=== PATIENT | female | born 1990 | race Caucasian/White ===

== ENCOUNTER 2020-09-26 09:12 | Outpatient (REF) | payer OTHER, SELFPAY ==
[2020-09-26 11:57] LABS: HCG Quantitative 37756 mIU/mL
== END 2020-09-26 09:13 | disposition home or self-care (01) ==
LOC: HO.LAB 09:12
PROVIDERS: PCP Internal Medicine; Visit Provider Advanced Practice Midwife
DX: Z32.01 Encounter for pregnancy test, result positive (principal); Z3A.00 Weeks of gestation of pregnancy not specified; Z87.891 Personal history of nicotine dependence
CPT/HCPCS: 36415; 81025; 84702; 99212

== ENCOUNTER 2020-09-29 11:46 | Outpatient (REF) | payer OTHER, SELFPAY ==
[2020-09-29 14:41] LABS: HCG Quantitative 45970 mIU/mL
== END 2020-09-29 11:47 | disposition home or self-care (01) ==
LOC: HO.LAB 11:46
PROVIDERS: PCP Internal Medicine; Visit Provider Advanced Practice Midwife
DX: O26.851 Spotting complicating pregnancy, first trimester (principal)
CPT/HCPCS: 36415; 84702

== ENCOUNTER 2020-09-30 09:22 | Outpatient (REF) | payer OTHER, SELFPAY ==
--- NOTE | ~2020-09-30 | US_ITS ---
EXAMINATION: OBSTETRICAL ULTRASOUND, FIRST TRIMESTER HISTORY: 30-year-old with unknown LMP NT screening COMPARISON: None TECHNIQUE: Real time transabdominal imaging with color and M-mode Doppler. FINDINGS: A single, live IUP CRL of 54.7 mm c/w 12.1wks is noted. Heart Rate: 167 beats per minute. Normal yolk sac seen. NT was 1.2.mm. NB Present The embryo appears sonographically wnl for this GA. Both maternal ovaries are seen and appear normal. GESTATIONAL AGE: 1. Established GA: N/A wks 2. GA from [facility]: 12.1 wks ESTIMATED DATE OF DELIVERY: 1. Established LIZA: N/A 2. LIZA from [facility]: 04/13/2021 US/US OB 1T nuc measure IMPRESSION: 1. A single live IUP 2. CRL is consistent with 12.1 weeks giving her an LIZA of 04/23/2021 3. NT 1.2 mm MFM Consultation: I reviewed the ultrasound findings along with significance of NT measurement. The NT of less than 3mm is generally reassuring. However, the sensitivity for T21 detection is only 60%. I reviewed the availability of serum aneuploidy screening which includes cell-free DNA and placental protein based tests. I discussed the sensitivity, false-positive rate, and other limitations associated with each test. I also reviewed the availability of invasive diagnostic tests that are associated small but definite risk of miscarriage. We also reviewed the differences between screening tests and diagnostic tests. After our discussion, she opted for the First trimester screening that is based on cell-free DNA or non-invasive testing (NIPT). The result will be faxed to your office in approximately 7 days. A follow up at 18 weeks for survey has been scheduled. Thank you very much for this referral. Total time 20 minutes. The time spent was devoted to counseling the patient about the disease and diagnosis, coordinating care including reviewing her records, pertinent lab data and studies, as well as discussing diagnostic evaluation and workup, plan therapeutic interventions and future disposition of care. This includes any additional research needed to obtain further information in formulating the plan of care of this patient. This note was generated with a voice recognition program. Please excuse any errors which may have been overlooked during my review of this note. Sometimes these errors may affect the content or meaning of a given sentence.
== END 2020-09-30 09:23 | disposition home or self-care (01) ==
LOC: HO.US 09:22
PROVIDERS: Visit Provider Advanced Practice Midwife
DX: O26.851 Spotting complicating pregnancy, first trimester (principal); Z3A.12 12 weeks gestation of pregnancy
CPT/HCPCS: 76813

== ENCOUNTER → 2020-10-18 14:14 | Outpatient (BNVA) | payer OTHER, SELFPAY | PROVIDERS: PCP Internal Medicine; Visit Provider Advanced Practice Midwife | DX: Z13.89 Encounter for screening for other disorder (principal) | CPT/HCPCS: 99212 ==

== ENCOUNTER 2020-10-26 09:02 | Outpatient (REF) | payer OTHER, SELFPAY ==
[2020-10-26 14:01] LABS: CT PCR NOT DETECTED (Not Detect.); NG PCR NOT DETECTED (Not Detect.)
[2020-10-27 09:06] LABS: BV Int Neg Control Negative (Negative); BV Int Pos Control Positive (Positive)
[2020-10-29 03:21] LABS: HPV mRNA E6/E7 rflx Not Detected (Not Detected)
== END 2020-10-26 09:03 | disposition home or self-care (01) ==
LOC: HO.LAB 09:02
PROVIDERS: PCP Internal Medicine; Visit Provider Advanced Practice Midwife
DX: O98.512 Other viral diseases complicating pregnancy, second trimester (principal); B00.9 Herpesviral infection, unspecified; Z87.891 Personal history of nicotine dependence; Z20.2 Contact with and (suspected) exposure to infections with a predominantly sexual mode of transmission; Z12.4 Encounter for screening for malignant neoplasm of cervix
CPT/HCPCS: 36415; 81003; 87480; 87491; 87510; 87591; 87624; 87660; 88142; 99212

== ENCOUNTER 2020-11-11 10:49 | Outpatient (REF) | payer OTHER, SELFPAY ==
--- NOTE | ~2020-11-11 | US_ITS ---
EXAMINATION: US OBSTETRICAL CLINICAL INFORMATION: 30-year-old at the 18.1 weeks of gestation Suspected anomaly COMPARISON: 09/30/2020 TECHNIQUE: Real-time transabdominal ultrasound was performed using C1-5 megahertz transducer. FINDINGS: A single, active, fetus is seen in breech presentation. The placenta is posterior without previa, and the amniotic fluid volume is wnl. MEASUREMENTS: 1. Biparietal Diameter: 8.4 cm; 17.6 wks 2. Occipital Frontal Diameter: 5.3 cm 3. Head Circumference: 14.9 cm; 18.1 wks 4. Abdominal Circumference: 12.1 cm; 17.6 wks 5. Femur Length: 2.5 cm; 17.5 wks 6. Humerus Length: 2.4 cm; 17.4 wks 7. Tibia Length: 2.2 cm; 17.6 wks 8. Ulna Length: 2.3 cm; 18.2 wks 9. Lateral ventricle: 0.7 cm 10. Cerebellum: 1.84 cm; 19 point wks 11. Cisterna Magna: 0.34 cm 12. Nuchal Fold: 2.6 mm 13. Heart Rate: 158 beats per minute Rt ovary: normal Lt ovary: normal Cervical length 3.9 cm on T/A. GESTATIONAL AGE: 1. Established GA: 18.1 wks 2. GA from [facility]: 18.0 wks ESTIMATED DATE OF DELIVERY: 1. Established LIZA: 04/13/2021 2. LIZA from [facility]: 04/14/2021 ANATOMY: The views of the four-chamber view of the heart, ventricular septum, 3 vessel trachea view were suboptimal due to position. There is an echogenic intracardiac focus. The visualized anatomy includes but not limited to: 1. Cranium: Normal 2. Intracranial anatomy: cavum septum pellucidi, lateral ventricles, choroid plexus, cerebellum, posterior fossa, third and fourth ventricles. 3. face: orbits, lip/palate, profile, nasal bone 4. Heart: Echogenic intracardiac focus. Limited view of the four-chamber, ventricular septum. Following anatomy were within normal limits: foramen ovale, pulmonary vein, left and right outflow tracts, three-vessel view, 3 vessel trachea view, aortic and ductal arches, situs.. 5. Diaphragm: Normal 6. Abdominal wall: Normal 7. Cord Insertion: Normal 8. Spine: Cervical, thoracic, lumbar, sacral. 9. Stomach: Normal size and shape 10. Right Kidney: Normal 11. Left Kidney: Normal 12. 3 vessel cord: Normal 13. Upper extremity: Open hands, fifth digit. 14. Lower extremity: Tibia, fibula, bilateral feet. 15. Bladder: Normal 16. Genitalia: Male, patient aware US/US OB /maternal detail IMPRESSION: 1. Single, living, intrauterine with appropriate biometry. 2. Echogenic intracardiac focus in the left ventricle. cardiac anatomy was suboptimal secondary to position. No abnormalities were seen in visualized anatomy. 3. Normal amniotic fluid volume DISCUSSION: I reviewed there are weak association with Down syndrome and echogenic intracardiac focus. The likelihood ratio is 2. She had the low risk N IPT. In the setting of low risk N IPT, EIF is considered to be a normal variant.. Aside from its association with Down syndrome, the clinical significance of EIF is unclear. We discussed the limitations of ultrasound in diagnosing aneuploidy and other congenital abnormalities. I reviewed the differences between screening test and diagnostic test. Amniocentesis was discussed and declined. I informed her that she should the follow-up in approximately 2 weeks to complete the evaluation of the cardiac anatomy. She was informed that the baseline incidence of congenital abnormalities is approximately 3-5%. Not all these conditions are diagnosable in utero. RECOMMENDATIONS: 1. Follow-up in 2 weeks (scheduled). Thank you for allowing me to participate in her care. Total time 30 minutes. The time spent was devoted to counseling the patient about the disease and diagnosis, coordinating care including reviewing her records, pertinent lab data and studies, as well as discussing diagnostic evaluation and workup, plan therapeutic interventions and future disposition of care. This includes any additional research needed to obtain further information in formulating the plan of care of this patient. This note was generated with a voice recognition program. Please excuse any errors which may have been overlooked during my review of this note. Sometimes these errors may affect the content or meaning of a given sentence.
== END 2020-11-11 10:50 | disposition home or self-care (01) ==
LOC: HO.US 10:49
PROVIDERS: Visit Provider Advanced Practice Midwife
DX: Z36.3 Encounter for antenatal screening for malformations (principal); Z3A.18 18 weeks gestation of pregnancy
CPT/HCPCS: 76811

== ENCOUNTER 2020-11-21 12:04 | Outpatient (REF) | payer OTHER, SELFPAY ==
[2020-11-21 13:06] LABS: MANUAL DIFF FLAG NO
[2020-11-21 13:07] LABS: Basophils Percent Auto 0.2 % (0-2); Eosinophils Absolute Auto 0.2 X10*3/uL (0.0-0.4); Eosinophils Percent Auto 2.1 % (0-4); Hematocrit 36.7 % (37-47); Hemoglobin 12.3 g/dl (12.0-16.0); Imm Gran Abs Auto 0.07 X10*3/uL (0.00-0.03); Imm Gran Pct Auto 0.8 % (0.0-0.4); Lymphocytes Absolute Auto 1.5 X10*3/uL (1.2-4.9); Lymphocytes Percent Auto 16.5 % (20-40); Mean Corpuscular HGB Conc 33.5 g/dl (31.0-35.0); Mean Corpuscular Hemoglobin 30.2 pg (27.0-33.0); Mean Corpuscular Volume 90.2 fL (80-98); Mean Platelet Volume 10.4 fL (9.4-12.3); Monocytes Absolute Auto 0.6 X10*3/uL (0.1-1.2); Monocytes Percent Auto 6.1 % (2-11); Neutrophils Absolute Auto 6.9 X10*3/uL (2.0-8.3); Neutrophils Percent Auto 74.3 % (45-73); Platelet Count 250 X10*3/uL (160-400); Red Blood Count 4.07 X10*6/uL (4.20-5.50); Red Cell Distribution Width 12.6 % (11.0-16.0); White Blood Count 9.3 X10*3/uL (4.8-10.8)
[2020-11-21 13:26] LABS: Amphetamine Screen Urine Not Detected (Not Detect); Barbiturates, Urine Not Detected (Not Detect); Benzodiazepines Screen Urine Not Detected (Not Detect); Cannabinoid Screen Urine POSITIVE (Not Detect); Cocaine Screen Urine Not Detected (Not Detect); Opiate Screen Urine Not Detected (Not Detect); Phencyclidine Screen Urine Not Detected (Not Detect)
[2020-11-21 13:46] LABS: Syphilis Screen Nonreactive (Nonreactive)
[2020-11-22 04:29] LABS: HIV AB/AG Nonreactive (Nonreactive); HIV Num 1 0.07 S/CO (0.00-0.99); ~Hepatitis C Antibody Nonreactive (Nonreactive)
[2020-11-22 04:40] LABS: HBsAGNum1 0.22 S/CO (0.00-0.99); Hepatitis B Surface Antigen Negative (Negative)
== END 2020-11-21 12:05 | disposition home or self-care (01) ==
LOC: HO.LAB 12:04
PROVIDERS: PCP Internal Medicine; Visit Provider Advanced Practice Midwife
DX: Z34.90 Encounter for supervision of normal pregnancy, unspecified, unspecified trimester (principal)
CPT/HCPCS: 80307; 85025; 86762; 86780; 86787; 86803; 86850; 86886; 86900; 86901; 87086; 87340; 87389

== ENCOUNTER → 2020-11-23 10:38 | Outpatient (BNVA) | payer OTHER, SELFPAY | PROVIDERS: Visit Provider Advanced Practice Midwife | DX: Z34.82 Encounter for supervision of other normal pregnancy, second trimester (principal); Z3A.19 19 weeks gestation of pregnancy | CPT/HCPCS: 81003; 99212 ==

== ENCOUNTER 2020-11-25 10:32 | Outpatient (REF) | payer OTHER, SELFPAY ==
--- NOTE | ~2020-11-25 | US_ITS ---
EXAMINATION: OBSTETRICAL ULTRASOUND, Follow up HISTORY: 30-year-old at the [place] she 0.1 weeks of gestation Incomplete survey COMPARISON: 11/11/2020 TECHNIQUE: Real time transabdominal imaging with color and M-mode Doppler. PRESENTATION: Vertex PLACENTA LOCATION: Anterior without previa AMNIOTIC FLUID: Normal MEASUREMENTS: 1. Biparietal Diameter: 4.7 cm; 20.2 wks 2. Head Circumference: 17.6 cm; 20.1 wks 3. Abdominal Circumference: 14.4 cm; 19.6 wks 4. Femur Length: 3.0 cm; 19.1 wks 5. Heart Rate: 146 beats per minute WEIGHT: Estimated weight is 290 grams (0 lbs 11 oz) -- 60 %. Normal views of lateral cerebral ventricle, profile, nose/lips, 4ch view, LVOT, RVOT, gender. GESTATIONAL AGE: 1. Established GA: 20.1 wks 2. GA from [facility]: 19.6 wks ESTIMATED DATE OF DELIVERY: 1. Established LIZA: 04/13/2021 2. LIZA from [facility]: 04/15/2021 US/US OB follow up IMPRESSION: 1. A single fetus with appropriate interval growth. 2. Previously limited views of the anatomy were seen as listed above. No abnormalities were noted in visualized anatomy. 3. Persistent EIF. She was counseled regarding the clinical significance of this finding in her last visit. I reviewed the limitations of ultrasound in diagnosing aneuploidy and other congenital abnormalities. Amniocentesis was again reviewed and she declined. She was informed that the baseline instance of congenital abnormalities and defects in the general population is approximately 3-5%. Not all these conditions are diagnosable in utero. RECOMMENDATIONS: 1. f/u PRN Thank you very much for this referral. Total time 20 minutes. The time spent was devoted to counseling the patient about the disease and diagnosis, coordinating care including reviewing her records, pertinent lab data and studies, as well as discussing diagnostic evaluation and workup, plan therapeutic interventions and future disposition of care. This includes any additional research needed to obtain further information in formulating the plan of care of this patient. This note was generated with a voice recognition program. Please excuse any errors which may have been overlooked during my review of this note. Sometimes these errors may affect the content or meaning of a given sentence.
== END 2020-11-25 10:33 | disposition home or self-care (01) ==
LOC: HO.US 10:32
PROVIDERS: PCP Internal Medicine; Visit Provider Advanced Practice Midwife
DX: Z36.3 Encounter for antenatal screening for malformations (principal)
CPT/HCPCS: 76816

== ENCOUNTER → 2020-12-21 10:33 | Outpatient (BNVA) | payer OTHER, SELFPAY | PROVIDERS: Visit Provider Advanced Practice Midwife | DX: Z34.92 Encounter for supervision of normal pregnancy, unspecified, second trimester (principal); Z3A.23 23 weeks gestation of pregnancy | CPT/HCPCS: 81003; 99212 ==

== ENCOUNTER → 2021-01-18 11:15 | Outpatient (BNVA) | payer OTHER, SELFPAY | PROVIDERS: Visit Provider Obstetrics & Gynecology | DX: O34.219 Maternal care for unspecified type scar from previous cesarean delivery (principal); Z3A.27 27 weeks gestation of pregnancy | CPT/HCPCS: 81003; 99212 ==

== ENCOUNTER 2021-01-30 09:30 | Outpatient (REF) | payer OTHER, SELFPAY ==
--- NOTE | 2021-01-30 16:19 | MHC.AU.AHA ---
Adult Audiological Evaluation Date of Visit: 01/30/21 Reason for Appointment: Audiological re-evaluation to monitor the status of Ms. Hernandez's hearing loss. She has a long-standing history of bilateral, sensorineural hearing loss and hearing aid use. She notes that she feels the hearing in her right ear is getting worse. She denies any significant changes to her medical history since her last visit. [place] [facility] [place] Mild sloping to moderately-severe sensorineural hearing loss and rising to normal hearing bilaterally. Ear History: Family History of Hearing Loss?: Yes: Daughter has bilateral SNHL Medical History: Medical History: Unremarkable Medical History Hearing Instrument History- Right Ear: Framing Machine Tender: [employer]pe Model: AiotraeGreenIQ M50-13T Serial Number: [id number] Battery Size: 13 Repair Warranty: 06/30/2022 Loss and Damage Warranty: 06/30/2022 Dispensed By: [facility] Date of Fittin04/20/2019 Hearing Instrument History- Left Ear: Framing Machine Tender: Phonak Model: Aiotraeo M50-13T Serial Number: [id number] Battery Size: 13 Warranty: 06/30/2022 Loss and Damage Warranty: 06/30/2022 Dispensed By: [facility] Date of Fittin04/20/2019 Otoscopy: Right Ear: Unremarkable Left Ear: Unremarkable Tympanometry: Tympanometry performed due to: To assess integrity of the middle ear system Right Ear: Normal Middle Ear System (Type A) Left Ear: Normal Middle Ear System (Type A) Hearing Evaluation: Transducer(s) Used: Insert Earphones, Bone Conduction Method: Conventional Audiometry Stimuli Used: Pure Tones Right Ear: Description of Hearing: Mild sensorineural hearing loss (SNHL) at 250-500 Hz, sloping to a moderate SNHL at 750 Hz, a moderately severe SNHL from 7055-4287 Hz, and rising to a moderate SNHL at 4000 Hz, and normal hearing from 6129-6111 Hz. Left Ear: Description of Hearing: Mild sensorineural hearing loss (SNHL) at 250-750 Hz, sloping to a moderately severe SNHL from 8734-3144 Hz, and rising to a moderate SNHL at 3000 Hz, a mild SNHL at 4000 Hz, and normal hearing from 9121-6057 Hz. Speech Recognition Threshold (SRT): Method Used: Monitored Live Voice Stimuli Used: Spondee Words Right Ear: 35 dBHL Left Ear: 25 dBHL Word Discrimination: Method: Recorded Lists Word Lists Used: NU-6 Right Ear: 92% at 75 dBHL Left Ear: 88% at 75 dBHL Comparison: Compared to the most recent evaluation: Hearing is stable. Recommendations: Audiological re-evaluation in one year. Hearing aid maintenance performed today. Hearing aid(s) reprogrammed with updated test results. Recommend consistent daily use of hearing aids. Diagnosis: Primary Diagnosis: H90.3 Bilateral Sensorineural Hearing Loss Services Performed: Comprehensive Audiological Evaluation (CPT 34371) Tympanometry (CPT 46268) Signature: Provider: Rao Pickard, CCC-A
== END 2021-01-30 09:31 | disposition home or self-care (01) ==
LOC: HO.SH 09:30
PROVIDERS: Visit Provider Internal Medicine
DX: Z46.1 Encounter for fitting and adjustment of hearing aid (principal); H90.3 Sensorineural hearing loss, bilateral
CPT/HCPCS: 92557; 92567; 92593; V5266

== ENCOUNTER → 2021-02-01 11:21 | Outpatient (BNVA) | payer OTHER, SELFPAY | PROVIDERS: Visit Provider Advanced Practice Midwife | DX: O34.219 Maternal care for unspecified type scar from previous cesarean delivery (principal); Z3A.39 39 weeks gestation of pregnancy | CPT/HCPCS: 81003; 99212 ==

== ENCOUNTER 2021-02-09 14:11 | Outpatient (REF) | payer OTHER, SELFPAY ==
[2021-02-09 16:10] LABS: Hematocrit 39.3 % (37-47); Hemoglobin 13.1 g/dl (12.0-16.0); Mean Corpuscular HGB Conc 33.3 g/dl (31.0-35.0); Mean Corpuscular Hemoglobin 29.3 pg (27.0-33.0); Mean Corpuscular Volume 87.9 fL (80-98); Mean Platelet Volume 10.4 fL (9.4-12.3); Platelet Count 263 X10*3/uL (160-400); Red Blood Count 4.47 X10*6/uL (4.20-5.50); Red Cell Distribution Width 12.8 % (11.0-16.0); White Blood Count 9.9 X10*3/uL (4.8-10.8)
[2021-02-09 16:18] LABS: Glucose 1 Hour PP 50gm Dose 156 mg/dL (60-140)
[2021-02-10 07:48] LABS: Syphilis Screen Nonreactive (Nonreactive)
== END 2021-02-09 14:12 | disposition home or self-care (01) ==
LOC: HO.LAB 14:11
PROVIDERS: PCP Internal Medicine; Visit Provider Advanced Practice Midwife
DX: Z34.92 Encounter for supervision of normal pregnancy, unspecified, second trimester (principal); Z20.2 Contact with and (suspected) exposure to infections with a predominantly sexual mode of transmission
CPT/HCPCS: 36415; 85027; 86780

== ENCOUNTER 2021-02-15 08:46 | Outpatient (REF) | payer OTHER, SELFPAY ==
[2021-02-15 09:40] LABS: Glucose Fasting 97 mg/dL (60-99)
[2021-02-15 11:15] LABS: Glucose 1 Hour 171 mg/dL
[2021-02-15 13:38] LABS: Glucose 3 Hour 111 mg/dL
[2021-02-15 13:38] LABS: Glucose 2 Hour 89 mg/dL
== END 2021-02-15 08:47 | disposition home or self-care (01) ==
LOC: HO.LAB 08:46
PROVIDERS: PCP Internal Medicine; Visit Provider Advanced Practice Midwife
DX: O99.810 Abnormal glucose complicating pregnancy (principal)
CPT/HCPCS: 36415; 82951

== ENCOUNTER → 2021-02-16 10:13 | Outpatient (BNVA) | payer OTHER, SELFPAY | PROVIDERS: Visit Provider Advanced Practice Midwife | DX: O99.810 Abnormal glucose complicating pregnancy (principal); Z3A.32 32 weeks gestation of pregnancy | CPT/HCPCS: 81003; 99212 ==

== ENCOUNTER → 2021-03-02 11:10 | Outpatient (BNVA) | payer OTHER, SELFPAY | PROVIDERS: Visit Provider Advanced Practice Midwife | DX: O36.8130 Decreased fetal movements, third trimester, not applicable or unspecified (principal); O99.810 Abnormal glucose complicating pregnancy; O34.219 Maternal care for unspecified type scar from previous cesarean delivery; Z3A.34 34 weeks gestation of pregnancy | CPT/HCPCS: 59025; 90471; 90715; 99212 ==

== ENCOUNTER 2021-03-17 10:41 | Outpatient (REF) | payer OTHER, SELFPAY ==
[2021-03-18 13:10] LABS: CT PCR NOT DETECTED (Not Detect.); NG PCR NOT DETECTED (Not Detect.)
== END 2021-03-17 10:42 | disposition home or self-care (01) ==
LOC: HO.LAB 10:41
PROVIDERS: Visit Provider Advanced Practice Midwife
DX: O99.810 Abnormal glucose complicating pregnancy (principal); O26.843 Uterine size-date discrepancy, third trimester; O36.8130 Decreased fetal movements, third trimester, not applicable or unspecified; O34.219 Maternal care for unspecified type scar from previous cesarean delivery; Z3A.36 36 weeks gestation of pregnancy
CPT/HCPCS: 87081; 87491; 87591; 99212

== ENCOUNTER 2021-03-24 08:37 | Outpatient (REF) | payer OTHER, SELFPAY ==
--- NOTE | ~2021-03-24 | US_ITS ---
EXAMINATION: OBSTETRICAL ULTRASOUND, Follow up HISTORY: 31-year-old woman at the 1137.1 weeks of gestation Size date discrepancy COMPARISON: 11/25/2020 TECHNIQUE: Real time transabdominal imaging with color and M-mode Doppler. PRESENTATION: Vertex PLACENTA LOCATION: Posterior without previa AMNIOTIC FLUID: AN 9.4 cm MEASUREMENTS: 1. Biparietal Diameter: 9.0 cm; 36.3 wks 2. Head Circumference: 32.6 cm; 37.0 wks 3. Abdominal Circumference: 31.1 cm; 35.1 wks 4. Femur Length: 6.4 cm; 33.0 wks 5. Heart Rate: 146 beats per minute WEIGHT: EFW: 2514 grams (5 lbs 9 oz) -- 8 %. BIOPHYSICAL PROFILE: Motion: 2 Tone: 2 Breathin Amniotic Fluid: 2 Total score: 8/8 UA Doppler showed SD ratio of 2.7. GESTATIONAL AGE: 1. Established GA: 37.1 wks 2. GA from [facility]: 35.3 wks ESTIMATED DATE OF DELIVERY: 1. Established LIZA: 04/13/2021 2. LIZA from [facility]: 04/25/2021 US/US OB velocimetry umbilical ar IMPRESSION: 1. A single active fetus is seen in the vertex presentation 2. Size less than dates, EFW corresponds to 8th percentile 3. Reassuring biophysical profile 4. Normal SD ratio I informed the patient that the interval growth has been less than expected . We discussed the limitations of ultrasound and estimating weights. Majority of the fetuses whose EFW fall below 10th percentile are constitutionally small fetuses who are growing to their full genetic potential. Approximately 20-30% of these fetuses may be experiencing intrauterine growth restriction. Often it is difficult to distinguish the two in utero. I reassured her that the testing is within normal limits including the umbilical artery Doppler. I recommended that weekly BPP and UA Doppler along with the NST 2 times per week. The delivery should be at approximately 39 weeks. Thank you very much for this referral. Total time 30 minutes. The time spent was devoted to counseling the patient about the disease and diagnosis, coordinating care including reviewing her records, pertinent lab data and studies, as well as discussing diagnostic evaluation and workup, plan therapeutic interventions and future disposition of care. This includes any additional research needed to obtain further information in formulating the plan of care of this patient. This note was generated with a voice recognition program. Please excuse any errors which may have been overlooked during my review of this note. Sometimes these errors may affect the content or meaning of a given sentence.
== END 2021-03-24 08:38 | disposition home or self-care (01) ==
LOC: HO.US 08:37
PROVIDERS: PCP Internal Medicine; Visit Provider Advanced Practice Midwife
DX: O26.843 Uterine size-date discrepancy, third trimester (principal); Z3A.37 37 weeks gestation of pregnancy
CPT/HCPCS: 76816; 76820; 99212

== ENCOUNTER → 2021-03-28 09:04 | Outpatient (BNVA) | payer OTHER, SELFPAY | PROVIDERS: Visit Provider Advanced Practice Midwife | DX: O36.5930 Maternal care for other known or suspected poor fetal growth, third trimester, not applicable or unspecified (principal); Z3A.37 37 weeks gestation of pregnancy | CPT/HCPCS: 59025; 81003; 99212 ==

== ENCOUNTER 2021-03-31 08:54 | Outpatient (REF) | payer OTHER, SELFPAY ==
--- NOTE | ~2021-03-31 | US_ITS ---
EXAMINATION: US OBSTETRICAL (BIOPHYSICAL PROFILE) CLINICAL INFORMATION: 31-year-old at 38.1 weeks of gestation growth restriction COMPARISON: 03/24/2021 TECHNIQUE: Biophysical profile is performed over 30 minutes with assessment of breathing, gross body movement, tone, and qualitative amniotic fluid volume. Power and color Doppler evaluation of the umbilical cord was performed. FINDINGS: POSITION: Cephalic PLACENTA: Posterior without previa AMNIOTIC FLUID INDEX: 11.9 cm CARDIAC ACTIVITY: 149 beats per minute BIOPHYSICAL PROFILE: Motion: 2 Tone: 2 Breathin Amniotic Fluid: 2 The total biophysical score is 8/8 UA Doppler showed SD ratio of 1.6 which is within normal limits. US/US OB velocimetry umbilical ar IMPRESSION: 1. Single intrauterine gestation in vertex position. 2. Reassuring BPP and AN. 3. Normal SD ratio in the umbilical artery. Last week's biometry was not repeated today. I reviewed today's findings and gave her reassurance. The testing was within normal limits. Despite last week's biometry showing an EFW in the 8th percentile, there is little evidence suggesting placental insufficiency. I reviewed the limitations of ultrasound and estimating weights. She is aware that the majority of the fetuses whose EFW fall below 10th percentile are constitutionally small but healthy fetuses growing to their full genetic potential. Approximately 20-30% of these fetuses may be experiencing placental insufficiency. Often it can be difficult to distinguish the two in utero. Recommend continuing weekly BPP and UA Doppler. NST 2 times per week. We will repeat the biometry next week. Suggest planning for delivery between 39 and 40 weeks if the testing continues to be reassuring. Thank you for allowing me to participate in her care. Total time 30 minutes. The time spent was devoted to counseling the patient about the disease and diagnosis, coordinating care including reviewing her records, pertinent lab data and studies, as well as discussing diagnostic evaluation and workup, plan therapeutic interventions and future disposition of care. This includes any additional research needed to obtain further information in formulating the plan of care of this patient. This note was generated with a voice recognition program. Please excuse any errors which may have been overlooked during my review of this note. Sometimes these errors may affect the content or meaning of a given sentence.
== END 2021-03-31 08:55 | disposition home or self-care (01) ==
LOC: HO.US 08:54
PROVIDERS: PCP Internal Medicine; Visit Provider Advanced Practice Midwife
DX: O26.843 Uterine size-date discrepancy, third trimester (principal); Z3A.38 38 weeks gestation of pregnancy
CPT/HCPCS: 59025; 76819; 76820; 99212

== ENCOUNTER → 2021-04-04 13:10 | Outpatient (BNVA) | payer OTHER, SELFPAY | PROVIDERS: Visit Provider Advanced Practice Midwife | DX: Z34.83 Encounter for supervision of other normal pregnancy, third trimester (principal); Z3A.38 38 weeks gestation of pregnancy | CPT/HCPCS: 59025; 81003; 99212 ==

== ENCOUNTER → 2021-04-17 09:00 | Outpatient (BNVA) | payer OTHER, SELFPAY | PROVIDERS: Visit Provider Advanced Practice Midwife | DX: Z39.2 Encounter for routine postpartum follow-up (principal) | CPT/HCPCS: 99212 ==

== ENCOUNTER 2021-05-05 09:52 | Outpatient (REF) | payer OTHER, SELFPAY ==
--- NOTE | ~2021-05-05 | XR_ITS ---
EXAMINATION: XR ABDOMEN KUB CLINICAL INDICATION: Calculus of kidney. COMPARISON: Renal ultrasound of 01/18/20. CT scan of 08/13/19. TECHNIQUE: AP view of the abdomen. FINDINGS: Visualization of the kidneys is obscured by overlying bowel gas and stool particularly on the left. No renal calculi are identified. There is a questionable small calcification overlying the lower pole of the right kidney. The bowel gas pattern is normal. Calcified phleboliths are seen in the left hemipelvis. There is a benign bone island in the right ischium. XR/XR KUB IMPRESSION: Limited evaluation. No definite renal calculi demonstrated.
== END 2021-05-05 09:53 | disposition home or self-care (01) ==
LOC: HO.XRAY 09:52
PROVIDERS: PCP Internal Medicine
DX: N20.0 Calculus of kidney (principal)
CPT/HCPCS: 74018

== ENCOUNTER → 2021-05-29 09:02 | Outpatient (BNVA) | payer OTHER, SELFPAY | PROVIDERS: Visit Provider Advanced Practice Midwife | DX: Z39.2 Encounter for routine postpartum follow-up (principal) | CPT/HCPCS: 99212 ==

== ENCOUNTER → 2021-06-06 09:08 | Outpatient (BNVA) | payer OTHER, SELFPAY | PROVIDERS: PCP Internal Medicine | DX: N20.0 Calculus of kidney (principal) | CPT/HCPCS: 99212 ==

== ENCOUNTER → 2021-06-16 09:26 | Outpatient (BNVA) | payer OTHER, SELFPAY | PROVIDERS: Visit Provider Advanced Practice Midwife | DX: Z39.2 Encounter for routine postpartum follow-up (principal) | CPT/HCPCS: 58300; 81025; 99212; J7298 ==

== ENCOUNTER → 2021-08-02 09:33 | Outpatient (BNVA) | payer OTHER, SELFPAY | PROVIDERS: Visit Provider Advanced Practice Midwife | DX: Z30.431 Encounter for routine checking of intrauterine contraceptive device (principal) | CPT/HCPCS: 99212 ==

== ENCOUNTER 2021-11-27 09:52 | Outpatient (REF) | payer OTHER, SELFPAY ==
--- NOTE | ~2021-11-27 | US_ITS ---
EXAMINATION: US RETROPERITONEAL LIMITED (RENAL ONLY) CLINICAL INFORMATION: Calculus of kidney. COMPARISON: XR abdomen KUB 05/05/2021. US retroperitoneal limited (renal only) 01/18/2020. CT abdomen and pelvis 08/13/2019. TECHNIQUE: Real-time imaging of the kidneys. FINDINGS: RIGHT KIDNEY: 11.6 x 4.3 x 5.5 cm (SAG x AP x TRV). The kidney is normal in size, contour, and echogenicity. Renal cortical thickness is normal. No calculi or focal parenchymal lesions. No hydronephrosis. There are multiple punctate echogenic calcifications seen throughout the kidney without parenchymal artifact. LEFT KIDNEY: 11.0 x 6.1 x 5.0 cm (SAG x AP x TRV). The kidney is normal in size, contour, and echogenicity. Renal cortical thickness is normal. No focal parenchymal lesions or hydronephrosis. Multiple echogenic stones seen. There is an echogenic stone in upper pole measuring 0.5 x 0.4 cm, lower pole measuring 0.5 x 0.4 cm, 0.2 cm, upper pole measuring 0.6 x 0.4, measuring 0.5 x 0.4 cm and midpole measuring 0.3 x 0.2 cm. Also visualized are multiple echogenic foci. US/US renal BI IMPRESSION: Multiple small echogenic nonobstructive calculi left kidney. There are multiple bilateral echogenic foci question small calcifications. There is no hydronephrosis..
== END 2021-11-27 09:53 | disposition home or self-care (01) ==
LOC: HO.US 09:52
DX: N20.0 Calculus of kidney (principal)
CPT/HCPCS: 76775

== ENCOUNTER 2021-12-15 08:08 | Outpatient (REF) | payer OTHER, SELFPAY ==
[2021-12-15 08:54] LABS: COVID-19 Test Positive (Negative); IDNOW Serial# 16C4AD1C
== END 2021-12-15 08:09 | disposition home or self-care (01) ==
LOC: HO.LAB 08:08
PROVIDERS: Visit Provider Internal Medicine
DX: Z20.822 Contact with and (suspected) exposure to COVID-19 (principal)
CPT/HCPCS: 87635; C9803

== ENCOUNTER 2022-04-05 08:48 | Outpatient (REF) | payer OTHER, SELFPAY ==
--- NOTE | 2022-04-05 13:20 | MHC.AU.AHA ---
Adult Audiological Evaluation Date of Visit: 04/05/22 Reason for Appointment: Long-standing history of hearing loss. She arrives today to determine if there has been a change in hearing. Previous Hearing Test Results: At this clinic on 01/30/2021- Mild sloping to moderately-severe sensorineural hearing loss, then rising to normal bilaterally Ear History: Recent Ear Pain: None reported Family History of Hearing Loss?: Yes: Daughter has bilateral SNHL Medical History: Medical History: Unremarkable Medical History Hearing Instrument History- Right Ear: Shellfish Processing Machine Tender: Phonak Model: SeniorSourceeo M50-13T Serial Number: [id number] Battery Size: 13 Repair Warranty: 06/30/2022 Loss and Damage Warranty: 06/30/2022 Dispensed By: [facility] Date of Fittin04/20/2019 Hearing Instrument History- Left Ear: Shellfish Processing Machine Tender: Phonak Model: SeniorSourceeo M50-13T Serial Number: [id number] Battery Size: 13 Warranty: 06/30/2022 Loss and Damage Warranty: 06/30/2022 Dispensed By: [facility] Date of Fittin04/20/2019 Otoscopy: Right Ear: Unremarkable Left Ear: Unremarkable Hearing Evaluation: Transducer(s) Used: Circumaural Headphones Method: Conventional Audiometry Stimuli Used: Pure Tones Right Ear: Description of Hearing: Mild sloping to moderately-severe sensorineural hearing loss, then rising to normal hearing by 8000 Hz Left Ear: Description of Hearing: Mild sloping to moderately-severe sensorineural hearing loss, then rising to normal hearing by 8000 Hz Speech Recognition Threshold (SRT): Method Used: Recorded Lists Stimuli Used: Spondee Words Right Ear: 40 dBHL Left Ear: 30 dBHL Word Discrimination: Method: Recorded Lists Word Lists Used: W-22 Right Ear: 76% at 75 dBHL Left Ear: 92% at 75 dBHL Comparison: Compared to the most recent evaluation: Hearing is stable. Recommendations: Audiological re-evaluation in one year. Patient recently lost her hearing aids. They are still covered under the loss and damage warranty. A loss and damage form was filled out and sent to [employer]. Patient will be contacted when the replacement hearing aids have arrived. Diagnosis: Primary Diagnosis: H90.3 Bilateral Sensorineural Hearing Loss Signature: Provider: Rao Zavaleta, [facility]
== END 2022-04-05 08:49 | disposition home or self-care (01) ==
LOC: HO.SH 08:48
PROVIDERS: Visit Provider Registered Nurse
DX: Z01.118 Encounter for examination of ears and hearing with other abnormal findings (principal); H90.3 Sensorineural hearing loss, bilateral
CPT/HCPCS: 92557

== ENCOUNTER 2022-04-18 14:00 | Outpatient (REF) | payer OTHER, SELFPAY | END 2022-04-18 14:01 | disposition home or self-care (01) | LOC: HO.HAP 14:00 | PROVIDERS: Visit Provider Registered Nurse | DX: Z13.89 Encounter for screening for other disorder (principal) ==

== ENCOUNTER 2022-08-16 08:34 | Outpatient (REF) | payer OTHER, SELFPAY ==
--- NOTE | ~2022-08-16 | US_ITS ---
EXAMINATION: US RETROPERITONEAL LIMITED (RENAL ONLY) CLINICAL INFORMATION: Calculus of kidney. COMPARISON: Ultrasound retroperitoneal limited (renal only) 11/27/2021. X-ray abdomen KUB 05/05/2021. Ultrasound retroperitoneal limited (renal only) 01/18/2020. CT abdomen and pelvis without contrast 08/13/2019. TECHNIQUE: Real-time imaging of the kidneys. FINDINGS: RIGHT KIDNEY: 12.2 x 5.1 x 6.2 cm (SAG x AP x TRV). The kidney is normal in size, contour, and echogenicity. Renal cortical thickness is normal. No hydronephrosis. There is anechoic cyst midpole measuring 0.7 x 0.9 x 0.7 cm. A nonobstructive echogenic stone midpole measures 0.4 x 0.3 x 0.3 cm. LEFT KIDNEY: 11.8 x 6.4 x 4.9 cm (SAG x AP x TRV). The kidney is normal in size, contour, and echogenicity. Renal cortical thickness is normal. No focal parenchymal lesions or hydronephrosis. There is an echogenic stone upper pole measuring 0.7 x 0.4 x 0.4 cm and lower pole measuring 0.4 x 0.4 x 0.3 cm. There is no caliectasis. US/US renal BI IMPRESSION: 1. Bilateral nonobstructive echogenic renal calculi. No caliectasis or hydronephrosis. 2. Small midpole cyst right kidney.
== END 2022-08-16 08:35 | disposition home or self-care (01) ==
LOC: HO.US 08:34
DX: N20.0 Calculus of kidney (principal)
CPT/HCPCS: 76775

== ENCOUNTER 2022-08-27 11:21 | Outpatient (REF) | payer OTHER, SELFPAY ==
[2022-08-27 16:49] LABS: Urine Cytology See Pathology rpt
== END 2022-08-27 11:22 | disposition home or self-care (01) ==
LOC: HO.LAB 11:21
PROVIDERS: Visit Provider Nurse Practitioner Family
DX: N20.0 Calculus of kidney (principal); Z79.899 Other long term (current) drug therapy
CPT/HCPCS: 88112; 99212

== ENCOUNTER 2023-01-01 11:23 | Outpatient (REF) | payer OTHER, SELFPAY ==
[2023-01-01 15:33] LABS: CT PCR NOT DETECTED (Not Detect.); NG PCR NOT DETECTED (Not Detect.)
[2023-01-02 12:37] LABS: BV Int Neg Control Negative (Negative); BV Int Pos Control Positive (Positive)
[2023-01-03 22:54] LABS: HPV mRNA E6/E7 rflx Not Detected (Not Detected)
== END 2023-01-01 11:24 | disposition home or self-care (01) ==
LOC: HO.LNP 11:23
PROVIDERS: PCP Internal Medicine; Visit Provider Advanced Practice Midwife
DX: Z01.419 Encounter for gynecological examination (general) (routine) without abnormal findings (principal); Z11.51 Encounter for screening for human papillomavirus (HPV)
CPT/HCPCS: 0353U; 87480; 87510; 87624; 87660; 88142

== ENCOUNTER 2023-01-30 11:25 | Outpatient (REF) | payer OTHER, SELFPAY ==
--- NOTE | ~2023-01-30 | US_ITS ---
EXAMINATION: US RETROPERITONEAL LIMITED (RENAL ONLY) CLINICAL INFORMATION: Calculus of kidney. COMPARISON: X-ray abdomen KUB 01/30/2023. Ultrasound retroperitoneal limited (renal only) 08/16/2022 and 11/27/2021. X-ray abdomen KUB 05/05/2021. CT abdomen and pelvis without contrast 08/13/2019. TECHNIQUE: Real-time imaging of the kidneys. FINDINGS: RIGHT KIDNEY: 11.0 x 5.6 x 5.0 cm (SAG x AP x TRV). The kidney is normal in size, contour, and echogenicity. Renal cortical thickness is normal. There are a few sub-5 mm nonobstructing calculi within the right kidney. There is no hydronephrosis. Also noted is an 8 mm simple appearing midpole cyst for which no follow-up imaging is usually warranted. LEFT KIDNEY: 10.6 x 6.0 x 4.7 cm (SAG x AP x TRV). The kidney is normal in size, contour, and echogenicity. Renal cortical thickness is normal. A few sub-5 mm nonobstructing renal calculi are noted. There is no hydronephrosis. US/US renal BI IMPRESSION: Tiny bilateral nonobstructing renal calculi. No hydronephrosis of either kidney.
--- NOTE | ~2023-01-30 | XR_ITS ---
EXAMINATION: XR ABDOMEN KUB CLINICAL INDICATION: History of renal calculi. COMPARISON: Ultrasound of 01/30/2023 and KUB of 05/05/[address] abdomen and pelvis of 08/13/2019. TECHNIQUE: AP view of the abdomen. FINDINGS: The bowel gas pattern is normal with no evidence of ileus or obstruction. There is partial sacralization left side of L5. There are sclerotic lesions again seen within the right greater trochanter and ischium. Osteitis pubis is present. IUD in place. There are a few small calcifications seen overlying the shadow of the mid right kidney overlying the right 12th rib measuring up to 3 mm in diameter and may represent right renal calculi. There is also question of a few small calculi overlying the left 12th rib measuring up to 5 mm in length which may represent left renal calculi. No definite calculi about the expected paths of the ureters identified. Multiple phleboliths seen about the pelvis. Psoas margins intact. XR/XR KUB IMPRESSION: Question bilateral nephrolithiasis on this plain film study. Some of these densities appear to be present to some degree on examination of 05/05/2021.
== END 2023-01-30 11:26 | disposition home or self-care (01) ==
LOC: HO.US 11:25
PROVIDERS: PCP Internal Medicine; Visit Provider Nurse Practitioner Family
DX: N20.0 Calculus of kidney (principal)
CPT/HCPCS: 74018; 76775

== ENCOUNTER 2023-02-19 11:44 | Outpatient (AMB) | payer OTHER, SELFPAY ==
--- NOTE | 2023-02-19 11:51 | MHC.OFFVIS ---
Intake Intake Visit Reasons: 6m follow up/US Intake Note: Patient is present for?follow up ultrasound/kidney stone (imaging 01/30) Urology Medications: Vitamin B6 Blood Thinner: none Inside Outside Sales Representative Required: No Accompanied by: Self / Same As Patient Allergies No Known Allergies Allergy (Mild, Verified 02/21/23 06:24) NOT APPLICABLE Medication List - Last Reconciled 02/21/23 by BUCKY Mares levonorgestrel (Mirena) intrauterine minoxidil mg PO mometasone 0.1% mL topical multivitamin with minerals (Hair,Skin and Nails tablet) 0 tabs PO pyridoxine (vitamin B6) 100 mg PO DAILY 90 days simethicone 0 mg PO BEDTIME HPI HPI Comments History of Present Illness Details Merry is a pleasant 33 year old female patient of Dr. Matute. She presents to the office today for a follow up of her history of nephrolithiasis. When asked patient reports to be doing well. She denies any urological issues at this time. She reports compliance with her vitamin B6 daily. Patient with recent renal imaging given her history of renal stones these results were reviewed with the patient today. KUB small calcifications shadowing mid right kidney measuring up to 3 mm in diameter. There is question of a few calculi measuring up to 5 mm within the left kidney. Renal ultrasound results reviewed with the patient today. Right kidney with a few sub 5 mm nonobstructing renal calculi within the right kidney. No hydronephrosis noted. Simple 8 mm appearing mid pole cyst for which no follow-up imaging is recommended per radiology report. Left kidney with a few sub 5 mm nonobstructing renal calculi. There is no hydronephrosis. She denies any urianry issues or concenrs at this time. When asked she denies urinary urgency, urinary frequency, incontinence, nocturia, hematuria, dysuria, foul smelling urine, changes to urinary stream, flank pain, fever, and or chills. She is happy with her current voiding parameters. Discussed, encouraged, and instructed to drink plenty of water daily. FORMERLY [facility], [facility] Medical History Abnormal glucose affecting Renal calculi Surgical History History of surgery Family History Maternal Grandmother HTN (hypertension) Maternal Grandfather No problems noted. Paternal Grandmother No problems noted. 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 Gender identity: Female Female Reproductive History Menstrual Age of Menarche: 8 Review of Systems Const All systems reviewed & are unremarkable except as noted in HPI and below Reports no additional complaints Eyes Reports no additional complaints ENT Reports no additional complaints Card Reports no additional complaints Resp Reports no additional complaints GI Reports no additional complaints Reports as per HPI Musc Reports no additional complaints Neuro Reports no additional complaints Psych Reports no additional complaints Endo Reports no additional complaints Olu/Lymph Reports no additional complaints Aller/Immun Reports no additional complaints Physical Exam Const General: cooperative, healthy appearing, comfortable, no acute distress, well developed, alert and awake Orientation/consciousness: patient oriented x3 Limitations: no limitations HEENT Head: Yes normal to inspection, Yes normocephalic and Yes atraumatic Ears: hearing grossly normal bilaterally Eyes General: appearance normal, both eyes and all related structures Neck Neck: Yes normal visual inspection and Yes trachea midline Chest Chest palpation & inspection: normal inspection of the chest Resp Effort & Inspection: normal respiratory effort and able to speak in complete sentences Cardio Rate: regular rate GI Inspection: Yes normal to inspection General: Yes no CVA tenderness Back/Spine/Pelvis Back: no CVA tenderness Skin General skin exam: no rashes or lesions noted Neuro General: patient oriented x3 Extrem General: Yes normal to inspection Psych Appearance: grossly normal and well kempt Mental Status: mental status grossly normal Speech and movement: Normal speech and movement present and Clear speech present Affect: normal affect Attitude: cooperative Thought process: Normal thought process present Thought content: Normal thought content present Insight: Good insight present (Psych) Judgement: Good judgement present (Psych) Results AMB Urinalysis, Automated UA Leukoctes 0 Aydin/uL Last Edit by [employer] on 02/19/23 12:13 UA Nitrite Last Edit by tribre [email or web address] on 02/19/23 12:13 UA Urobilinogen 0.2 mg/dL Last Edit by tribre [employer] on 02/19/23 12:13 UA Protein 0 mg/dL Last Edit by tribre [employer] on 02/19/23 12:13 UA pH 7.0 Last Edit by [employer] on 02/19/23 12:13 UA Blood 25 Raymond/uL Last Edit by [employer] on 02/19/23 12:13 UA Specific Posey 1.005 Last Edit by [employer] on 02/19/23 12:13 UA Ketone Last Edit by [employer] on 02/19/23 12:13 UA Bilirubin 0 mg/dL Last Edit by [employer] on 02/19/23 12:13 UA Glucose 0 mg/dL Last Edit by [employer] on 02/19/23 12:13 Results Reviewed Results Reviewed: Laboratory Last Values Urine pH (Auto) 7.0 02/19/23 12:00 Specific Posey (Auto) 1.005 02/19/23 12:00 Urine Protein (Auto) 0 mg/dL 02/19/23 12:00 Glucose (UA)(Auto) 0 mg/dL 02/19/23 12:00 Urine Blood (Auto) 25 Raymond/uL 02/19/23 12:00 Urine Bilirubin (Auto) 0 mg/dL 02/19/23 12:00 Urine Urobilinogen (Auto) 0.2 mg/dL 02/19/23 12:00 Leukocyte Esterase (Auto) 0 Aydin/uL 02/19/23 12:00 Date of Service: 01/30/23 Procedure(s): US renal BI EXAMINATION: US RETROPERITONEAL LIMITED (RENAL ONLY) CLINICAL INFORMATION: Calculus of kidney. COMPARISON: X-ray abdomen KUB 01/30/2023. Ultrasound retroperitoneal limited (renal only) 08/16/2022 and 11/27/2021. X-ray abdomen KUB 05/05/2021. CT abdomen and pelvis without contrast 08/13/2019. TECHNIQUE: Real-time imaging of the kidneys.? FINDINGS: RIGHT KIDNEY: 11.0 x 5.6 x 5.0 cm (SAG x AP x TRV). The kidney is normal in size, contour, and echogenicity. Renal cortical thickness is normal. There are a few sub-5 mm nonobstructing calculi within the right kidney. There is no hydronephrosis. Also noted is an 8 mm simple appearing midpole cyst for which no follow-up imaging is usually warranted. LEFT KIDNEY: 10.6 x 6.0 x 4.7 cm (SAG x AP x TRV). The kidney is normal in size, contour, and echogenicity. Renal cortical thickness is normal. A few sub-5 mm nonobstructing renal calculi are noted. There is no hydronephrosis. IMPRESSION: Tiny bilateral nonobstructing renal calculi. No hydronephrosis of either kidney. ? Date of Service: 01/30/23 EXAMINATION: XR ABDOMEN KUB FINDINGS: The bowel gas pattern is normal with no evidence of ileus or obstruction. There is partial sacralization left side of L5. There are sclerotic lesions again seen within the right greater trochanter and ischium. Osteitis pubis is present. IUD in place. There are a few small calcifications seen overlying the shadow of the mid right kidney overlying the right 12th rib measuring up to 3 mm in diameter and may represent right renal calculi. There is also question of a few small calculi overlying the left 12th rib measuring up to 5 mm in length which may represent left renal calculi. No definite calculi about the expected paths of the ureters identified. Multiple phleboliths seen about the pelvis. Psoas margins intact. XR/XR KUB IMPRESSION: Question bilateral nephrolithiasis on this plain film study. Some of these densities appear to be present to some degree on examination of 05/05/2021. Assessment & Plan Assessment & Plan (1) Renal calculi: Code(s): N20.0 - Calculus of kidney (2) Renal cyst: Code(s): N28.1 - Cyst of kidney, acquired Plan In office urinalysis results reviewed with the patient today; as noted above Recent KUB imaging and renal ultrasound results reviewed with the patient today Patient denies any urological issues or concerns at this time Discussed surveillance monitoring verses further surgical intervention regarding bilateral nonobstructing renal calculi; however patient denies any issues or concerns at this time Renal ultrasound in 6 months Continue vitamin b6 as discussed and prescribed Educated, instructed, and encouraged on the importance of drinking plenty of water daily. Discussed adding 1 oz of lemon juice to water daily. Follow-up in 6 months with imaging to be completed prior; or sooner with any issues, concerns, and or questions. Orders: Orders US renal BI 6 Months N20.0 - Calculus of kidney AMB Urinalysis Automated 02/19/23 Z13.9 - Encounter for screening, unspecified Medications: New pyridoxine (vitamin B6) 100 mg PO DAILY 90 days 90 tabs 3RF N20.0 - Calculus of kidney Patient Instructions: The patient had an opportunity to ask questions regarding the treatment plan. All questions were answered. Physical exam, labs, and imaging were discussed and reviewed in detail. As well as risks, benefits, and discussion of treatment choices. No major barriers to understanding were identified. The patient expressed understanding and agreement with the above treatment plan. The patient was made aware they should contact our office by phone for worsening of their current condition, the appearance of new symptoms, or with any questions or concerns. Compliance is encouraged with any medications and follow up testing that is ordered. It is a privilege to be allowed the opportunity to participate in? your urological care.? Again, if you have any questions or concerns If you have any questions or concerns please do not hesitate to contact me. The office is [phone]. This note is constructed using voice recognition software. While every effort has been made to ensure accuracy u.s. commissioner errors may have been included. Yours sincerely, BUCKY Mares Coding Level of Care Code Est Pt Level 3 (66122) Diagnoses Renal calculi N20.0 Renal cyst N28.1
== END 2023-02-19 12:28 | disposition home or self-care (01) ==
PROVIDERS: Visit Provider Nurse Practitioner Family
DX: N20.0 Calculus of kidney (principal); N28.1 Cyst of kidney, acquired
CPT/HCPCS: 99213

== ENCOUNTER → 2023-02-19 11:44 | Outpatient (BNVA) | payer OTHER, SELFPAY | PROVIDERS: Visit Provider Nurse Practitioner Family | DX: N20.0 Calculus of kidney (principal); N28.1 Cyst of kidney, acquired | CPT/HCPCS: 99212 ==

== ENCOUNTER 2023-08-06 12:49 | Outpatient (REF) | payer OTHER, SELFPAY ==
--- NOTE | ~2023-08-06 | US_ITS ---
EXAMINATION: US RETROPERITONEAL LIMITED (RENAL ONLY) CLINICAL INFORMATION: Calculus of kidney. COMPARISON: Renal ultrasound and x-ray abdomen KUB 01/30/2023. Renal ultrasound 08/16/2022. X-ray abdomen KUB 05/05/2021. CT abdomen and pelvis without contrast 08/13/2019. TECHNIQUE: Real-time imaging of the kidneys. Limited visualization due to bowel gas. FINDINGS: RIGHT KIDNEY: 11.1 x 5.3 x 5.0 cm (SAG x AP x TRV). No hydronephrosis. Limited visualization. Mid pole 0.4 cm calculus. Lower pole 0.3 cm calculus. Midpole 0.9 cm cyst with benign features. There is no indication for follow-up imaging. LEFT KIDNEY: 10.4 x 5.7 x 5.4 cm (SAG x AP x TRV). No hydronephrosis. Limited visualization. Multiple renal calculi, largest measured 0.2 cm midpole, 0.5 cm upper pole and 0.4 cm upper pole. US/US renal BI IMPRESSION: 1. Bilateral nonobstructive renal calculi. No hydronephrosis. 2. Right renal midpole 0.9 cm cyst with benign features. No indication for follow-up imaging.
== END 2023-08-06 12:50 | disposition home or self-care (01) ==
LOC: HO.US 12:49
PROVIDERS: PCP Internal Medicine; Visit Provider Nurse Practitioner Family
DX: N20.0 Calculus of kidney (principal)
CPT/HCPCS: 76775

== ENCOUNTER 2023-08-21 08:59 | Outpatient (AMB) | payer OTHER, SELFPAY ==
--- NOTE | 2023-08-21 09:09 | A.OFFVIS_ITS ---
Intake Intake Visit Reasons: 6m/US(SET) Intake Note: Patient is Present for Follow Up Ultrasound Urology Medication: Vitamin B6 Antibiotic Allergies: None Blood Thinners: None Allergies No Known Allergies Allergy (Mild, Verified 08/21/23 09:22) NOT APPLICABLE Medication List - Last Reconciled 08/21/23 by BUCKY Mares levonorgestrel (Mirena) intrauterine minoxidil mg PO mometasone 0.1% mL topical multivitamin with minerals (Hair,Skin and Nails tablet) 0 tabs PO pyridoxine (vitamin B6) 100 mg PO DAILY 90 days simethicone 0 mg PO BEDTIME HPI HPI Comments History of Present Illness Details Merry is a pleasant 33 year old female patient of Dr. Matute. She presents to the office today for a follow up of her history of nephrolithiasis. When asked patient reports to be doing well. She denies any urological issues at this time. She reports compliance with her vitamin B6 daily and continues to drink plenty of water daily. Recent renal imaging results reviewed with the patient today. Bilateral kidneys with no hydronephrosis. Right kidney with mid pole 0.4 cm calculus. Lower pole 0.3 cm calculus. Mid pole 0.9 cm cyst with benign features requiring no follow-up imaging per radiology report. Left kidney with multiple renal calculi, largest measuring 0.2 cm mid pole, 0.5 cm upper pole and 0.4 cm upper pole. She denies any urianry issues or concenrs at this time. When asked she denies urinary urgency, urinary frequency, incontinence, nocturia, hematuria, dysuria, foul smelling urine, annmarie nges to urinary stream, flank pain, fever, and or chills. She is happy with her current voiding parameters. Discussed, encouraged, and instructed to drink plenty of water daily. ON LICENSE OF [facility] Medical History Abnormal glucose affecting Renal calculi Surgical History History of surgery Family History Maternal Grandmother HTN (hypertension) Maternal Grandfather No problems noted. Paternal Grandmother No problems noted. 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 Gender identity: Female Female Reproductive History Menstrual Age of Menarche: 8 Review of Systems Const All systems reviewed & are unremarkable except as noted in HPI and below Reports no additional complaints Eyes Reports no additional complaints ENT Reports no additional complaints Card Reports no additional complaints Resp Reports no additional complaints GI Reports no additional complaints Reports as per HPI Musc Reports no additional complaints Neuro Reports no additional complaints Psych Reports no additional complaints Endo Reports no additional complaints Olu/Lymph Reports no additional complaints Aller/Immun Reports no additional complaints Physical Exam Const General: cooperative, healthy appearing, comfortable, no acute distress, well developed, alert and awake Orientation/consciousness: patient oriented x3 Limitations: no limitations HEENT Head: Yes normal to inspection, Yes normocephalic and Yes atraumatic Ears: hearing grossly normal bilaterally Eyes General: appearance normal, both eyes and all related structures Neck Neck: Yes normal visual inspection and Yes trachea midline Chest Chest palpation & inspection: normal inspection of the chest Resp Effort & Inspection: normal respiratory effort and able to speak in complete sentences Cardio Rate: regular rate GI Inspection: Yes normal to inspection General: Yes no CVA tenderness Back/Spine/Pelvis Back: no CVA tenderness Skin General skin exam: no rashes or lesions noted Neuro General: patient oriented x3 Extrem General: Yes normal to inspection Psych Appearance: grossly normal and well kempt Mental Status: mental status grossly normal Speech and movement: Normal speech and movement present and Clear speech present Affect: normal affect Attitude: cooperative Thought process: Normal thought process present Thought content: Normal thought content present Insight: Good insight present (Psych) Judgement: Good judgement present (Psych) Results AMB Urinalysis, Automated UA Leukoctes 0 Aydin/uL Last Edit by ALYSHA Pineda on 08/21/23 09:23 UA Nitrite Negative Last Edit by ALYSHA Pineda on 08/21/23 09:23 UA Urobilinogen 0.2 mg/dL Last Edit by Ada Dougherty, A on 08/21/23 09:2 3 UA Protein 0 mg/dL Last Edit by Ada Dougherty, A on 08/21/23 09:23 UA pH 6.0 Last Edit by Ada Dougherty, A on 08/21/23 09:23 UA Blood 25 Raymond/uL Last Edit by Ada Dougherty, A on 08/21/23 09:23 UA Specific [place] 1.020 Last Edit by Ada Dougherty, A on 08/21/23 09: 23 UA Ketone Negative Last Edit by dAa Dougherty, A on 08/21/23 09:23 UA Bilirubin 0 mg/dL Last Edit by Ada Dougherty, A on 08/21/23 09:23 UA Glucose 0 mg/dL Last Edit by Ada Dougherty [facility] on 08/21/23 09:23 Results Reviewed Results Reviewed: Date of Service: 08/06/23 EXAMINATION: US RETROPERITONEAL LIMITED (RENAL ONLY) FINDINGS: RIGHT KIDNEY: 11.1 x 5.3 x 5.0 cm (SAG x AP x TRV). No hydronephrosis. Limited visualization. Mid pole 0.4 cm calculus. Lower pole 0.3 cm calculus. Midpole 0.9 cm cyst with benign features. There is no indication for follow-up imaging. LEFT KIDNEY: 10.4 x 5.7 x 5.4 cm (SAG x AP x TRV). No hydronephrosis. Limited visualization. Multiple renal calculi, largest measured 0.2 cm midpole, 0.5 cm upper pole and 0.4 cm upper pole. IMPRESSION: 1. Bilateral nonobstructive renal calculi. No hydronephrosis. 2. Right renal midpole 0.9 cm cyst with benign features. No indication for follow-up imaging. Assessment & Plan Assessment & Plan (1) Renal calculi: Code(s): N20.0 - Calculus of kidney (2) Renal cyst: Code(s): N28.1 - Cyst of kidney, acquired Plan In office urinalysis results reviewed with the patient today; as noted above Recent renal ultrasound results reviewed with the patient today; as noted above. Patient denies any urological issues or concerns at this time Discussed surveillance monitoring verses further surgical intervention regarding bilateral nonobstructing renal calculi; however patient denies any issues or concerns at this time Renal ultrasound in 1 year. Continue vitamin b6 as discussed and prescribed Educated, instructed, and encouraged on the importance of drinking plenty of water daily. Discussed adding 1 oz of lemon juice to water daily. Follow-up in one year with imaging to be completed prior; or sooner with any issues, concerns, and or questions. Orders: Orders US renal BI 364 Days N20.0 - Calculus of kidney AMB Urinalysis Automated Today Z13.9 - Encounter for screening, unspecified Patient Instructions: The patient had an opportunity to ask questions regarding the treatment plan. All questions were answered. Physical exam, labs, and imaging were discussed and reviewed in detail. As well as risks, benefits, and discussion of treatment choices. No major barriers to understanding were identified. The patient expressed understanding and agreement with the above treatment plan. The patient was made aware they should contact our office by phone for worsening of their current condition, the appearance of new symptoms, or with any questions or concerns. Compliance is encouraged with any medications and follow up testing that is ordered. It is a privilege to be allowed the opportunity to participate in? your urological care.? Again, if you have any questions or concerns If you have any questions or concerns please do not hesitate to contact me. The office is [phone]. This note is constructed using voice recognition software. While every effort has been made to ensure accuracy german instructor errors may have been included. Yours sincerely, BUCKY Mares Coding Level of Care Code Est Pt Level 3 (17835) Diagnoses Renal calculi N20.0 Renal cyst N28.1
== END 2023-08-21 09:31 | disposition home or self-care (01) ==
PROVIDERS: PCP Internal Medicine; Visit Provider Nurse Practitioner Family
DX: N20.0 Calculus of kidney (principal); N28.1 Cyst of kidney, acquired; Z13.9 Encounter for screening, unspecified
CPT/HCPCS: 99213

== ENCOUNTER → 2023-08-21 08:59 | Outpatient (BNVA) | payer OTHER, SELFPAY | PROVIDERS: PCP Internal Medicine; Visit Provider Nurse Practitioner Family | DX: N20.0 Calculus of kidney (principal); N28.1 Cyst of kidney, acquired | CPT/HCPCS: 81003; 99212 ==

== ENCOUNTER 2024-01-08 13:20 | Outpatient (REF) | payer OTHER, SELFPAY ==
[2024-01-09 07:15] LABS: CT PCR NOT DETECTED (Not Detect.); NG PCR NOT DETECTED (Not Detect.)
[2024-01-09 11:04] LABS: Bacterial Vaginosis PCR POSITIVE (Negative); Candida Group PCR NOT DETECTED (Not Detect); Candida glab krusei PCR NOT DETECTED (Not Detect); Trichomonas vaginalis PCR NOT DETECTED (Not Detect)
== END 2024-01-08 13:21 | disposition home or self-care (01) ==
LOC: HO.LAB 13:20
PROVIDERS: PCP Internal Medicine; Visit Provider Advanced Practice Midwife
DX: Z01.419 Encounter for gynecological examination (general) (routine) without abnormal findings (principal); N89.8 Other specified noninflammatory disorders of vagina; Z20.2 Contact with and (suspected) exposure to infections with a predominantly sexual mode of transmission; Z97.5 Presence of (intrauterine) contraceptive device
CPT/HCPCS: 0352U; 0353U; 99395

== ENCOUNTER 2024-01-08 13:20 | Outpatient (AMB) | payer OTHER, SELFPAY ==
--- NOTE | 2024-01-08 13:30 | MHC.OFFVIS ---
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: No Information Interpreted: clinical only Weatherization Technician: Weatherization Technician Present Allergies No Known Allergies Allergy (Mild, Verified 01/08/24 13:31) NOT APPLICABLE Medication List - Last Reconciled 01/08/24 by Geovanna Puckett CNM levonorgestrel (Mirena) intrauterine mometasone 0.1% mL topical multivitamin with minerals (Hair,Skin and Nails tablet) 0 tabs PO pyridoxine (vitamin B6) 100 mg PO DAILY 90 days Is last menstrual period known: Yes Last menstrual period: 01/01/24 HPI HPI 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 She has since not and is eating now the kids are doing well in her son is now 2 and. 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 She is so started talking with somebody and did have sex a couple of times and the last time was condoms so she she would like to for STDs she has a Mirena IUD her periods are maybe a little operations research scientist but still come she had it in the past and she did not have her periods some that has a different experience. Her last Pap smear was so she does not need another currently. [facility] Medical History Renal calculi Abnormal glucose affecting Surgical History History of surgery Family History Maternal Grandmother HTN (hypertension) Maternal Grandfather No problems noted. Paternal Grandmother No problems noted. 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 Gender identity: Female Female Reproductive History Menstrual Age of Menarche: 8 Duration of menses: 6-7 days Date of last menstrual period: 01/01/24 control method: progestin IUCD Total pregnancies: 4 Full term: 4 Date of last pap smear: 01/01/23 (neg.previous test 2020 wnl) History of abnormal pap smear: No Physical Exam Vital Signs: Last Vital Signs BP 118/70 01/08/24 13:31 BMI result Body Mass Index 26.9 Const General: healthy appearing, comfortable, no acute distress, well developed and alert Nutritional Appearance: average body habitus Orientation/consciousness: patient oriented x3 Limitations: no limitations HEENT Head: Yes normocephalic Neck Neck: Yes normal visual inspection Chest Chest palpation & inspection: normal inspection of the chest Breast/axilla inspection: normal inspection of the breasts and normal inspection of the axillae Breast/axilla palpation: normal palpation of the breasts and normal palpation of the axillae Resp Effort & Inspection: normal respiratory effort GI Inspection: Yes normal to inspection, No Abdominal wall edema and No distended Palpation (GI): Soft to palpation and nontender Other: Normal external exam vagina pink and moist multiparous cervix pink smooth end of menses with Mirena strings visible cervix long close thick mobile nontender uterus midposition nontender adnexa nontender. General: Yes bladder normal to palpation External Female Exam: normal external appearance and normal appearance of the urethra Speculum Exam - Vagina: normal appearance of the vagina, normal palpation and normal vaginal discharge Speculum Exam - Cervix: normal appearance of the cervix, normal palpation and nontender Bimanual exam- vagina & uterus: normal bimanual exam, normal palpation, uterine size normal, bladder normal to palpation, consistency normal, normal palpation, uterine mobility normal, uterine shape normal, No Cervical tenderness present, non-tender and no cervical motion tenderness Bimanual Exam- Adnexa, other: normal adnexae, no masses, normal and No adnexal tenderness Neuro General: patient oriented x3 Assessment & Plan Assessment & Plan (1) Well woman exam with routine gynecological exam: Code(s): Z01.419 - Encounter for gynecological examination (general) (routine) without abnormal findings Category: Medical (2) Encounter for routine checking of intrauterine contraceptive device (IUD): Comment: Mirena, inserted sometime after childbirth 2020. Code(s): Z30.431 - Encounter for routine checking of intrauterine contraceptive device Category: Medical (3) Cervical cancer screening: Comment: 10/26/20 pap= neg, neg HPV; 01/01/2023 patient believes she had an abnormal in the past details unknown Pap repeated today= negative with negative HPV. Code(s): Z12.4 - Encounter for screening for malignant neoplasm of cervix Category: Medical (4) Encounter for screening examination for sexually transmitted disease: Code(s): Z11.3 - Encounter for screening for infections with a predominantly sexual mode of transmission Category: Medical Plan -----Discussed in this visit the following: healthy balanced diet, regular and consistent exercise, getting recommended health screens, doing the best she can for her particular health concerns, kegel exercises, pap smear screening and followup recommendations, mammography screening and SBE, normal changes in cycles in her life stage--- . Discussed testing for STIs she would blood work when she can. She has been doing well taking care of herself and her children working lots of hours. She feels better since she made the decision not to put up the relationship that did not feel good to her anymore. She did have sex times with somebody she is getting to know the 2nd time that a condom and after that she had an abnormal discharge but now she has a menses so that is why she is very interested in getting tested for STIs right now she is decided to just be with her kids. Her oldest is 15 and she has 1 that is 11 that is 12 and then 2-1/2-year-old. Orders: Orders Hepatitis B Surface Antigen Today Z01.419 - Encounter for gynecological examination (general) (routine) without abnormal findings, Z11.3 - Encounter for screening for infections with a predominantly sexual mode of transmission Syphilis Screen Today Z01.419 - Encounter for gynecological examination (general) (routine) without abnormal findings, Z11.3 - Encounter for screening for infections with a predominantly sexual mode of transmission Bacterial Vaginosis Panel Today N89.8 - Other specified noninflammatory disorders of vagina Hepatitis C Antibody Today Z01.419 - Encounter for gynecological examination (general) (routine) without abnormal findings, Z11.3 - Encounter for screening for infections with a predominantly sexual mode of transmission HIV Ab/Ag Today Z01.419 - Encounter for gynecological examination (general) (routine) without abnormal findings, Z11.3 - Encounter for screening for infections with a predominantly sexual mode of transmission CT NG by PCR Today N89.8 - Other specified noninflammatory disorders of vagina, Z20.2 - Contact with and (suspected) exposure to infections with a predominantly sexual mode of transmission Coding Level of Care Code Est Pt Prev Care 18-39y(38789) Diagnoses Well woman exam with routine gynecological exam Z01.419 Encounter for routine checking of intrauterine contraceptive device (IUD) Z30.431 Cervical cancer screening Z12.4 Encounter for screening examination for sexually transmitted disease Z11.3
[2024-01-08 13:31] VITALS: BP 118/70; BMI 26.9
== END 2024-01-08 14:18 | disposition home or self-care (01) ==
LOC: HO.HWSM 13:20
PROVIDERS: PCP Internal Medicine; Visit Provider Advanced Practice Midwife
DX: Z01.419 Encounter for gynecological examination (general) (routine) without abnormal findings (principal); Z30.431 Encounter for routine checking of intrauterine contraceptive device; Z12.4 Encounter for screening for malignant neoplasm of cervix; Z11.3 Encounter for screening for infections with a predominantly sexual mode of transmission
CPT/HCPCS: 99395

== ENCOUNTER 2024-08-14 10:35 | Outpatient (REF) | payer OTHER, SELFPAY ==
--- NOTE | ~2024-08-14 | US_ITS ---
EXAMINATION: US RETROPERITONEAL LIMITED (RENAL ONLY) CLINICAL INFORMATION: Calculus of kidney. COMPARISON: Numerous priors, most recently 08/06/2023. TECHNIQUE: Real-time color Doppler and grayscale imaging of the kidneys. FINDINGS: RIGHT KIDNEY: 11.0 x 4.5 x 5.3 cm (SAG x AP x TRV). The kidney is normal in size, contour, and echogenicity. Renal cortical thickness is normal. No hydronephrosis. There is a midpole simple cyst measuring 0.7 cm. There is a mid pole 0.3 cm calculus, a lower pole 0.3 cm calculus, and upper pole 0.2 cm calculus. LEFT KIDNEY: 10.8 x 6.1 x 4.3 cm (SAG x AP x TRV). The kidney is normal in size, contour, and echogenicity. Renal cortical thickness is normal. No hydronephrosis. No suspicious lesion. There is an upper pole calculus measuring 0.6 cm, and a lower pole calculus measuring 0.2 cm. US/US renal BI IMPRESSION: Nonobstructing bilateral nephrolithiasis.. Electronically signed by: Khadar Luo MD 08/17/2024 03:53 PM [facility] [place]
== END 2024-08-14 10:36 | disposition home or self-care (01) ==
LOC: HO.US 10:35
PROVIDERS: PCP Internal Medicine; Visit Provider Nurse Practitioner Family
DX: N20.0 Calculus of kidney (principal)
CPT/HCPCS: 76775

== ENCOUNTER → 2024-08-14 10:39 | Outpatient (BNV) | payer OTHER, SELFPAY | PROVIDERS: PCP Internal Medicine; Visit Provider Radiology Diagnostic Radiology | DX: N20.0 Calculus of kidney (principal) | CPT/HCPCS: 76775 ==

== ENCOUNTER 2024-08-19 09:17 | Outpatient (AMB) | payer OTHER, SELFPAY ==
--- NOTE | 2024-08-19 09:26 | MHC.OFFVIS ---
Intake Visit Reasons: 1y/US(pending 08/14/24) Intake Note: Patient is Present for Follow Up Ultrasound Urology Medication: Vitamin B6 Antibiotic Allergies: None Blood Thinners: None Imaging: Renal US 08/14/24 Accompanied by: Self / Same As Patient Allergies No Known Allergies Allergy (Mild, Verified 08/19/24 10:11) NOT APPLICABLE Medication List - Last Reconciled 08/19/24 by BUCKY Mares levonorgestrel (Mirena) intrauterine metronidazole 500 mg PO BID 7 days mometasone 0.1% mL topical multivitamin with minerals (Hair,Skin and Nails tablet) 0 tabs PO pyridoxine (vitamin B6) 50 mg (1/2 x 100 mg) PO DAILY 90 days HPI Comments Details: Merry is a pleasant 34 year old female patient of Dr. Matute. She presents to the office today for a follow up of her history of nephrolithiasis. When asked patient reports to be doing well. She denies any urological issues at this time. She reports compliance with her vitamin B6 daily however recently ran out and is requesting refill. Recent renal imaging results reviewed with the patient today 08/29 bilateral kidneys are normal in size, contour, and echogenicity. Bilateral kidneys with no hydronephrosis. Right kidney with 3 mm, 3 mm, and 2 mm nonobstructing calculus. Left kidney with 6 mm and 2 mm nonobstructing calculus. In discussion with the patient today she reports knowing she has not been drinking enough water daily. We discussed increase in stone burden in the last year. We discussed and stressed the importance of adequate hydration relation to nephrolithiasis as well as overall health and well-being. We discussed metabolic workup for further assessment evaluation. She does report noting bilateral flank pain however episodes have been infrequent and self managing. When asked she denies urinary urgency, urinary frequency, incontinence, nocturia, hematuria, dysuria, foul smelling urine, changes to urinary stream, fever, and or chills. She is happy with her current voiding parameters. Discussed, encouraged, and instructed to drink plenty of water daily. [facility] Medical History Renal calculi Abnormal glucose affecting Surgical History History of surgery Family History Maternal Grandmother HTN (hypertension) Maternal Grandfather No problems noted. Paternal Grandmother No problems noted. 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 Gender identity: Female Female Reproductive History Menstrual Age of Menarche: 8 Review of Systems Const All systems reviewed & are unremarkable except as noted in HPI and below Physical Exam Const General: cooperative, healthy appearing, comfortable, no acute distress, well developed, alert and awake Orientation/consciousness: patient oriented x3 Limitations: no limitations HEENT Head: Yes normal to inspection, Yes normocephalic and Yes atraumatic Ears: hearing grossly normal bilaterally Eyes General: appearance normal, both eyes and all related structures Neck Neck: Yes normal visual inspection and Yes trachea midline Chest Chest palpation & inspection: normal inspection of the chest Resp Effort & Inspection: normal respiratory effort and able to speak in complete sentences Cardio Rate: regular rate GI Inspection: Yes normal to inspection General: Yes no CVA tenderness Back/Spine/Pelvis Back: no CVA tenderness Skin General skin exam: no rashes or lesions noted Neuro General: patient oriented x3 Extrem General: Yes normal to inspection Psych Appearance: grossly normal and well kempt Mental Status: mental status grossly normal Speech and movement: Normal speech and movement present and Clear speech present Affect: normal affect Attitude: cooperative Thought process: Normal thought process present Thought content: Normal thought content present Insight: Fair insight present (Psych) Judgement: Fair judgement present (Psych) Results AMB Urinalysis, Automated UA Leukoctes 0 Aydin/uL Last Edit by ALYSHA Pineda on 08/19/24 09:43 UA Nitrite Negative Last Edit by ALYSHA Pineda on 08/19/24 09:43 UA Urobilinogen 0.2 mg/dL Last Edit by Ada Dougherty, A on 08/19/24 09:43 UA Protein 15 mg/dL Last Edit by Ada Dougherty, A on 08/19/24 09:43 UA pH 6.0 Last Edit by Ada Dougherty, A on 08/19/24 09:43 UA Blood 200 Raymond/uL Last Edit by Ada Dougherty, A on 08/19/24 09:43 UA Specific [place] 1.020 Last Edit by Ada Dougherty, RMA on 08/19/24 09:43 UA Ketone Negative Last Edit by Ada Dougherty, A on 08/19/24 09:43 UA Bilirubin 0 mg/dL Last Edit by Ada Dougherty, A on 08/19/24 09:43 UA Glucose 0 mg/dL Last Edit by Ada Dougherty, A on 08/19/24 09:43 Results Reviewed Results Reviewed: Laboratory Last Values Urine pH (Auto) 6.0 08/19/24 09:29 Specific [place] (Auto) 1.020 08/19/24 09:29 Urine Protein (Auto) 15 mg/dL 08/19/24 09:29 Glucose (UA)(Auto) 0 mg/dL 08/19/24 09:29 Urine Ketones (Auto) Negative 08/19/24 09:29 Urine Blood (Auto) 200 Raymond/uL 08/19/24 09:29 Urine Nitrite (Auto) Negative 08/19/24 09:29 Urine Bilirubin (Auto) 0 mg/dL 08/19/24 09:29 Urine Urobilinogen (Auto) 0.2 mg/dL 08/19/24 09:29 Leukocyte Esterase (Auto) 0 Aydin/uL 08/19/24 09:29 Date of Service: 08/14/24 EXAMINATION: US RETROPERITONEAL LIMITED (RENAL ONLY) FINDINGS: RIGHT KIDNEY: 11.0 x 4.5 x 5.3 cm (SAG x AP x TRV). The kidney is normal in size, contour, and echogenicity. Renal cortical thickness is normal. No hydronephrosis. There is a midpole simple cyst measuring 0.7 cm. There is a mid pole 0.3 cm calculus, a lower pole 0.3 cm calculus, and upper pole 0.2 cm calculus. LEFT KIDNEY: 10.8 x 6.1 x 4.3 cm (SAG x AP x TRV). The kidney is normal in size, contour, and echogenicity. Renal cortical thickness is normal. No hydronephrosis. No suspicious lesion. There is an upper pole calculus measuring 0.6 cm, and a lower pole calculus measuring 0.2 cm. IMPRESSION: Nonobstructing bilateral nephrolithiasis. Assessment & Plan Assessment & Plan (1) Renal cyst: Code(s): N28.1 - Cyst of kidney, acquired Category: Medical Plan In office urinalysis results reviewed with the patient today; as noted above. Patient currently denies any bothersome urinary issues or concerns. Recent renal imaging results reviewed with the patient today; as noted above. We discussed and stressed the importance of adequate hydration relation to nephrolithiasis as well as overall health and well-being. We discussed increase in stone burden over the last year. We discussed near future metabolic workup for further assessment evaluation. Continue vitamin B6; refill provided Continue adding 1 oz of lemon juice to water daily. Will obtain renal ultrasound in 6 months Follow-up in 6 months with imaging to be completed prior; or sooner with any issues, concerns, and or questions. Orders: Orders AMB Urinalysis Automated Today Z13.9 - Encounter for screening, unspecified US renal BI 6 Months N20.0 - Calculus of kidney, N28.1 - Cyst of kidney, acquired Medications: Changed From pyridoxine (vitamin B6) 100 mg PO DAILY 90 days 90 tabs 3RF N20.0 - Calculus of kidney To pyridoxine (vitamin B6) 50 mg (1/2 x 100 mg) PO DAILY 45 tabs 3RF 90 days N20.0 - Calculus of kidney Patient Instructions: The patient had an opportunity to ask questions regarding the treatment plan. All questions were answered. Physical exam, labs, and imaging were discussed and reviewed in detail. As well as risks, benefits, and discussion of treatment choices. No major barriers to understanding were identified. The patient expressed understanding and agreement with the above treatment plan. The patient was made aware they should contact our office by phone for worsening of their current condition, the appearance of new symptoms, or with any questions or concerns. Compliance is encouraged with any medications and follow up testing that is ordered. It is a privilege to be allowed the opportunity to participate in? your urological care.? Again, if you have any questions or concerns If you have any questions or concerns please do not hesitate to contact me. The office is [phone]. This note is constructed using voice recognition software. While every effort has been made to ensure accuracy annealing torch operator errors may have been included. Yours sincerely, BUCKY Mares Coding Level of Care Code Est Pt Level 3 (40467) Diagnoses Renal cyst N28.1
== END 2024-08-19 10:08 | disposition home or self-care (01) ==
PROVIDERS: PCP Internal Medicine; Visit Provider Nurse Practitioner Family
DX: N28.1 Cyst of kidney, acquired (principal); Z13.9 Encounter for screening, unspecified
CPT/HCPCS: 99213

== ENCOUNTER → 2024-08-19 09:17 | Outpatient (BNVA) | payer OTHER, SELFPAY | PROVIDERS: PCP Internal Medicine; Visit Provider Nurse Practitioner Family | DX: N20.0 Calculus of kidney (principal); N28.1 Cyst of kidney, acquired | CPT/HCPCS: 81003; 99212 ==

== ENCOUNTER 2025-01-08 08:26 | Day surgery (SDC) | payer OTHER, SELFPAY ==
[2025-01-08] VITALS (10 sets, daily range): BP systolic 99–132; BP diastolic 51–87; PULSE 53–99; RESP 14–18; TEMP 36.1–36.6; O2SAT 99–100; BMI 28.2
--- NOTE | ~2025-01-08 | CT_ITS ---
EXAMINATION: CT ABDOMEN PELVIS WITHOUT IV CONTRAST HISTORY: Left flank lower back pain. Kidney stones? COMPARISON: Comparison is made with the prior examination dated 08/13/2019. TECHNIQUE: CT scan of the abdomen and pelvis was performed without contrast using standard departmental protocol. Coronal and sagittal reformatted images were generated and reviewed. Oral contrast material was not administered per department protocol. This CT exam was performed with one or more of the following dose reduction techniques: automated exposure control, adjustment of the mA and/or kV according to patient size, use of iterative reconstruction technique. DLP: 505 mGy-cm FINDINGS: LOWER CHEST: The visualized lung bases are clear. There is no pleural effusion. CARDIOVASCULATURE: The heart is normal in size. There is no pericardial effusion. LIVER: The liver is normal in size and contour. The liver has an unremarkable unenhanced appearance. GALLBLADDER / BILE DUCTS: The gallbladder is unremarkable. There is no intra or extrahepatic biliary ductal dilatation. SPLEEN: The spleen is normal in size and has an unremarkable unenhanced appearance. PANCREAS: The pancreas has an unremarkable unenhanced appearance. ADRENAL GLANDS: Unremarkable. KIDNEYS/RETROPERITONEUM: There are numerous nonobstructing calculi in both kidneys measuring up to 2-3 mm. There is moderate left hydronephrosis secondary to an 8 mm UPJ calculus. LYMPH NODES: No retroperitoneal lymphadenopathy is identified in the abdomen or pelvis. VASCULATURE: The abdominal aorta is normal in caliber. MESENTERY/PERITONEUM: No free fluid. No masses. There is no free intraperitoneal gas. STOMACH: The stomach is collapsed, limiting evaluation. SMALL BOWEL: There is a long segment of jejunum which demonstrates abnormal wall thickening consistent with enteritis. The ileum is unremarkable in appearance. COLON: The colon is unremarkable. APPENDIX: Normal. URINARY BLADDER/PELVIC ORGANS: The urinary bladder is collapsed, limiting evaluation. An IUD is noted in the endometrial cavity of the uterus. BONES / SOFT TISSUES: No suspicious bony or soft tissue abnormalities. CT/CT abdomen pelvis wo IV con IMPRESSION: 1. Moderate left hydronephrosis secondary to an 8 mm UPJ calculus. 2. Long segment of abnormal jejunum demonstrating wall thickening, consistent with enteritis. This may be infectious or inflammatory in nature. 3. Bilateral nephrolithiasis as described. Electronically signed by: Arthur Field MD 01/08/2025 11:12 AM EDT RP
--- NOTE | ~2025-01-08 | FL_ITS ---
EXAMINATION: FL GUIDANCE ONLY HISTORY: left ureteral stent placement COMPARISON: Correlation is made with a CT of the abdomen without contrast dated 01/08/2025. TECHNIQUE: Fluoroscopy time: 11.2 seconds. Cumulative Dose: 2.67 mGy. Images: 2. FINDINGS: Fluoroscopic spot films of the left upper quadrant were obtained. The initial film demonstrates a filling defect in the proximal left ureter, consistent with the calculus noted on CT. The 2nd image shows a stent in place. FL/FL guidance in OR IMPRESSION: Fluoroscopy during procedure. Please see procedure report for additional information. Electronically signed by: Arthur Field MD 01/11/2025 06:57 AM EDT
[2025-01-08 09:27] LABS: MANUAL DIFF FLAG NO
[2025-01-08 09:28] LABS: Basophils Percent Auto 0.3 % (0-2); Eosinophils Absolute Auto 0.1 X10*3/uL (0.0-0.4); Eosinophils Percent Auto 0.4 % (0-4); Hematocrit 42.8 % (37.0-47.0); Hemoglobin 14.5 g/dl (12.0-16.0); Imm Gran Abs Auto 0.03 X10*3/uL (0.00-0.03); Imm Gran Pct Auto 0.3 % (0.0-0.4); Lymphocytes Absolute Auto 1.3 X10*3/uL (1.2-4.9); Lymphocytes Percent Auto 11.8 % (20-40); Mean Corpuscular HGB Conc 33.9 g/dl (31.0-35.0); Mean Corpuscular Hemoglobin 30.6 pg (27.0-33.0); Mean Corpuscular Volume 90.3 fL (80.0-98.0); Mean Platelet Volume 9.5 fL (9.4-12.3); Monocytes Absolute Auto 0.6 X10*3/uL (0.1-1.2); Monocytes Percent Auto 5.2 % (2-11); Neutrophils Absolute Auto 9.2 x10*3/uL (2.0-8.3); Platelet Count 258 X10*3/uL (160-400); Red Blood Count 4.74 X10*6/uL (4.20-5.50); White Blood Count 11.3 X10*3/uL (4.8-10.8)
--- NOTE | 2025-01-08 09:31 | PC.NURSE ---
patient a&ox3, iv inserted, labs drawn, pt aware she needs to give a urine, provider at bedside, call hartley within reach, plan of care ongoing
--- NOTE | 2025-01-08 09:43 | ED.GENADULT ---
HPI - General Adult General Chief complaint: Abdominal Pain Stated complaint: L Side Pain Time Seen by Provider: 01/08/25 09:24 Source: patient Mode of arrival: ambulatory Limitations: no limitations History of Present Illness ED Provider: Cde Medrano HPI narrative: 34 yold female with pmh of Kidney stones presents to the ED for left flank/lower back pain with dark urine since 5am this morning. Patient also states nausea. Patient denies any chest pain, pleurisy, leg swelling, calf pain, recent long travel, recent surgery, pmh of blood clot, or control use. Related Data Home Medications ?Medication ?Instructions ?Recorded ?Confirmed multivitamin with minerals 1 tab PO DAILY 06/06/21 01/08/25 (Hair,Skin and Nails tablet) levonorgestrel 21 mcg/24 hr (up to 1 device intrauterine DIRECTED 08/02/21 01/08/25 8 years) 52 mg intrauterine device (Mirena) Previous Rx's ?Medication ?Instructions ?Recorded pyridoxine (vitamin B6) 100 mg 50 mg (1/2 x 100 mg) PO DAILY 90 08/19/24 tablet days #45 tabs naproxen 500 mg tablet 500 mg PO BID PRN pain 7 days #14 01/08/25 tabs phenazopyridine 100 mg tablet 100 mg PO TID PRN Spasm 4 days #12 01/08/25 (Pyridium) tabs tamsulosin 0.4 mg capsule 0.4 mg PO BEDTIME 14 days #14 caps 01/08/25 Allergies Allergy/AdvReac Type Severity Reaction Status Date / Time No Known Allergies Allergy Mild NOT Verified 01/08/25 15:16 APPLICABLE Review of Systems Review of Systems: Left flank lower back pain, nausea, dark urine Yes all other systems are reviewed and are negative [facility] Past Medical History Medical History (Updated 01/11/25 @ 08:35 by Michaela Bustos DO) care following delivery Encounter for screening for malformation using ultrasound Small for dates fetus Size of fetus inconsistent with dates, antepartum Decreased movement affecting management of mother, antepartum Spotting affecting in first trimester Encounter for supervision of normal in third trimester Encounter for supervision of normal in third trimester Encounter for supervision of normal in second trimester Unplanned test positive Renal calculi Abnormal glucose affecting Surgical History (Updated 01/08/25 @ 16:28 by Debora Carbajal RN) Previous section Family History Family History Maternal Grandmother HTN (hypertension) Maternal Grandfather No problems noted. Paternal Grandmother No problems noted. Social History Social History Household Members: Children Household Members Other:: lives with 3 daughters Both parents involved: Yes Housing: Condominium Are you a primary children's zoo caretaker to a significant other at home: No Do you presently have visiting nurse or other home services: No 75 years or older and lives alone: No Alcohol intake: current Alcohol intake frequency: a few times a month Patient Tobacco Use Status: Former Tobacco user Tobacco use type: Cigarette Cigarettes Per Day: 1 Years Smoked: 15 Second Hand Smoke Exposure: No Substance Use Type: Marijuana Trauma History: None service: No Current occupational status: employed 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 Gender identity: Female Physical Exam ED Vital Signs: Vital Signs - 24 hr 01/08/25 08:48 Temperature 97.3 F Pulse Rate 71 Respiratory Rate 16 Blood Pressure 132/80 Pulse Oximetry 100 Oxygen Delivery Method Room Air BMI result Body Mass Index 28.2 Const General: cooperative, healthy appearing, comfortable, no acute distress, well developed, alert, awake and Physically active Orientation/consciousness: patient oriented x3 HENMT Head: Yes normal to inspection, Yes No palpable skull fracture present, Yes normocephalic and Yes atraumatic Eyes General: appearance normal, both eyes and all related structures Neck Neck: Yes normal visual inspection, Yes full ROM, Yes no lymphadenopathy, Yes no meningeal signs, Yes trachea midline, Yes supple, No anterior neck swelling and No tender Chest Chest palpation & inspection: normal inspection of the chest and normal palpation of entire chest wall Resp Effort & Inspection: normal respiratory effort and able to speak in complete sentences Auscultation: clear to auscultation bilaterally Cardio Jugular venous distension: no JVD Heart sounds: S1 normal heart sound present and S2 normal heart sound present GI Inspection: Yes normal to inspection Palpation (GI): Soft to palpation, not firm, Tenderness to palpation present (GI) in the LLQ, no guarding and not rigid General: Yes CVA tenderness (left) Back/Spine/Pelvis Back: CVA tenderness (left) Skin General skin exam: no rashes or lesions noted, elasticity normal and turgor normal Neuro General: patient oriented x3, gait normal, tone normal, moves all extremities, Normal light touch and pain sensation, no meningeal signs, no focal motor deficits, CN's II-XI intact bilaterally and normal sensation to monofilament Extrem General: Yes normal to inspection, Yes full ROM and Yes capillary refill normal Psych Appearance: grossly normal, well kempt and not disheveled Medications Administered Discontinued Medications Generic Name Dose Route Start Last Admin Trade Name Freq PRN Reason Stop Dose Admin Hydromorphone HCl 1 mg 01/08/25 11:46 01/08/25 12:40 Hydromorphone Hcl 1 Mg/Ml Syringe IVPUSH 01/08/25 11:47 1 mg ONCE ONE Administration Protocol Sodium Chloride 1,000 mls @ 999 mls/hr 01/08/25 09:42 01/08/25 10:52 Ns IV 01/08/25 10:42 Infused .Q1H1M STA Infusion Levofloxacin 500 mg in 100 mls @ 100 mls/hr 01/08/25 13:06 01/08/25 14:08 Levaquin IV 01/08/25 14:05 100 mls/hr PREOP ONE Administration Ketorolac Tromethamine 30 mg 01/08/25 10:23 01/08/25 10:34 Ketorolac Tromethamine 30 Mg/Ml Vial IVPUSH 01/08/25 10:24 30 mg ONCE ONE Administration Metoclopramide HCl 10 mg 01/08/25 10:46 01/08/25 11:01 Metoclopramide Hcl 10 Mg/2 Ml Vial IVPUSH 01/08/25 10:47 10 mg ONCE ONE Administration Morphine Sulfate 4 mg 01/08/25 10:23 01/08/25 10:35 Morphine Sulfate 4 Mg/Ml Cartridge IVPUSH 01/08/25 10:24 4 mg ONCE ONE Administration Protocol Ondansetron HCl 4 mg 01/08/25 09:47 01/08/25 09:50 Ondansetron Hcl 4 Mg/2 Ml Vial IVPUSH 01/08/25 09:48 4 mg ONCE ONE Administration Phenazopyridine HCl 100 mg 01/08/25 16:39 01/08/25 16:54 Phenazopyridine Hcl 100 Mg Tablet PO 01/08/25 16:40 100 mg ONCE ONE Administration Tamsulosin HCl 0.4 mg 01/08/25 11:30 01/08/25 12:40 Tamsulosin Hcl 0.4 Mg Capsule PO 01/08/25 11:31 0.4 mg ONCE ONE Administration Medical Decision Making Medical Decision Making [facility] Narrative: 34-year-old female presents to ED for left flank lower left abdominal pain with nausea and dark urine since 05:00. Patient has history of kidney stones. Labs ordered Zofran fluids ordered. 2:00pm: Case discussed with Dr. Armstrong who recommends patient be admitted to short stay surgery for stent placement for 8mm stone. Patient pain controlled with narcotics. UA negative for UTI. patient is not sepsis. Differential Diagnosis Differential Diagnoses: The differential diagnosis associated with the presentation includes (kidney stones, pyelonephritits, ) Admission/Observation Consideration of admission/observation: Escalation of care including admission/observation considered Consult Healthcare Provider Management of the patient was discussed with: [employer] Consultant (Dr. Armstrong Nephrology) Lab Data [facility] Lab Attestation statement: I reviewed the patient's lab results. 01/08/25 09:23 01/08/25 09:23 Labs: Lab Results 01/08/25 01/08/25 Range/Units 09:23 12:08 WBC 11.3 H (4.8-10.8) X10*3/uL RBC 4.74 (4.20-5.50) X10*6/uL Hgb 14.5 (12.0-16.0) g/dl Hct 42.8 (37.0-47.0) % MCV 90.3 (80.0-98.0) fL MCH 30.6 (27.0-33.0) pg MCHC 33.9 (31.0-35.0) g/dl RDW 13.0 (11.0-16.0) % Plt Count 258 (160-400) X10*3/uL MPV 9.5 (9.4-12.3) fL Immature Gran % (Auto) 0.3 (0.0-0.4) % Neut % (Auto) 82.0 H (45-73) % Lymph % (Auto) 11.8 L (20-40) % [place] % (Auto) 5.2 (2-11) % Eos % (Auto) 0.4 (0-4) % Baso % (Auto) 0.3 (0-2) % Lymph # (Auto) 1.3 (1.2-4.9) X10*3/uL [place] # (Auto) 0.6 (0.1-1.2) X10*3/uL Eos # (Auto) 0.1 (0.0-0.4) X10*3/uL Baso # (Auto) 0.0 (0.0-0.2) X10*3/uL Abs Immat Gran (auto) 0.03 (0.00-0.03) X10*3/uL Absolute Neuts (auto) 9.2 H (2.0-8.3) x10*3/uL Absolute Nucleated RBC 0.000 (0.0-0.012) X10*3/uL Nucleated RBC % (auto) 0.0 (0.0-0.2) /100WBC Sodium 141 (135-145) mmol/L Potassium 3.7 (3.3-5.1) mmol/L Chloride 108 (96-108) mmol/L Carbon Dioxide 24 (22-29) mmol/L Anion Gap 13 (12-20) BUN 11 (9-16) mg/dL Creatinine 0.74 (0.5-1.4) mg/dL Estim Creat Clear Calc 100.1 Estimated GFR > 60 Random Glucose 120 H (60-115) mg/dL Calcium 9.1 (8.4-10.2) mg/dL Total Bilirubin 0.5 (0.0-1.0) mg/dL AST 27 (5-31) U/L ALT 11 (0-31) U/L Alkaline Phosphatase 61 (39-117) U/L Total Protein 7.0 (6.5-8.0) g/dL Albumin 4.3 (3.5-5.0) g/dL Beta HCG, Quant < 2 mIU/mL Urine Color Yellow Urine Appearance Cloudy Urine pH 7.0 (5.0-9.0) Ur Specific [place] 1.020 (1.005-1.025) Urine Protein 30 (1+) H (Neg-Trace) mg/dL Urine Glucose (UA) Negative (Negative) mg/dL Urine Ketones 80 (Negative) mg/dL Urine Blood Moderate (2+) H (Negative) Urine Nitrite Negative (Negative) Ur Leukocyte Esterase Trace H (Negative) Urine RBC >20 H (0-2) /HPF Urine WBC 0-5 (0-5) /HPF Ur Squamous Epith Cells 11-20 (0-2) /HPF Urine Bacteria 2+ (None Seen) Hyaline Casts 0-2 (0-2) /LPF Independent Interpretation I performed an independent interpretation of an: CT Scan Independent Historian Clinical information obtained from an independent historian. History obtained from or confirmed by: Other (patient) Discharge Plan Discharge Clinical Impression: Calculus, ureteral Patient Disposition: Admitted as Observation Discharge Date/Time: 01/08/25 15:12
--- OUTSIDE RECORDS SUMMARY | 2025-01-08 09:45 | XMS_ITS | Clinical Summary ---
Author Organization [facility] Address [address] [place] [address] Care Team Providers Care Warp Spooler Name Role Phone Meliza Samayoa MD Primary Care Pr ovider Allergies No known active allergies Medications ondansetron ODT (ZOFRAN-ODT) 4 mg disintegrating tablet Take 1 tablet (4 mg total) by mouth every 8 (eight) hours if needed. 09/11/19 24 Active aspirin-acetaminop hen-caffeine (EXCEDRIN MIGRAINE) 250-250-65 mg per tablet Take 2 Tablets by mouth daily as needed (Headache). 09/11/19 24 Active benzoyl peroxide 2.5 % cream APPLY 1 APPLICATOR TOPICALLY DAILY. 04/02/20 23 Active minoxidiL (LONITEN) 2.5 mg tablet Take 1 tablet (2.5 mg total) by mouth 1 (one) time each day. 11/30/19 23 Active pyridoxine (B-6) 100 mg tablet Take 1 tablet (100 mg total) by mouth 1 (one) time each day. 12/05/19 23 Active levonorgestreL (MIRENA) 21 mcg/24hr (up to 8 yrs) 52 mg IUD by Intrauterine route. Active Active Problems Problem Noted Date Diagnosed Date Migraine without status migrainosus, not intract able 06/11/2023 Anxiety 04/23/2017 Calculus of ureter 04/23/2017 Overview (08/07/2024): 2011. 3 mm ureteral stone w/ Left hydronephrosis Depression 04/23/2017 Eczema 04/23/2017 Hearing loss 04/23/2017 Overview (08/07/2024): Hearing aids Ovarian cyst 04/23/2017 Overview (08/07/2024): Right. 2.6 hemorrhagic cyst 2014 Immunizations Name Administration Dates Next Due DTaP (Infanrix) 6wks to less than 7yo ,07/24/1989,1988,1987 [id number] (Pentacel) 2mo to less than 5yo 09/20/1989 HPV, Quadrivalent 07/05/2009,05/05/2009 Hepatitis B Pediatric (Enger ix B; Recombivax HB) to less than 20 yo 11/14/2001,07/10/1999,06/12/1999 IPV Inactivated polio (Ipol) 6wks and older 03/27/1998,11/01/1989,07/24/1989,1988,1988 Influenza Quadravalent, MDCK , 0.5ml, preservative free (Flucelvax) 6mo and older 06/11/2023 Influenza trivalent, with preservative (Fluzone; Afluria) 6mo and older 08/31/2015 MMR, measles mumps and rubel la Live (Priorix; M-M-R II) 12mo and older 06/04/1996,09/20/1989 PPD Test 03/18/2019 Td Tetanus diptheria (Tdvax) 7yo and older 12/22/1998 Tdap Tetanus diptheria acell ular pertussis (Boostrix; Adacel) 7yo and older 03/02/2021,12/31/2012 Varicella live (Varivax) 12m o and older 12/31/2012,07/19/1998 Surgical History Surgery Date Site/Laterality Comments SECTION PROCEDURE: HISTORICAL ; COMMENT: x2 Medical History Medical History Date Comments Depression 04/23/2017 DX:Depression Ovarian cyst 04/23/2017 DX:Ovarian cyst; COMMENT: Right. 2.6 hemorrhagic cyst 2014 Calculus of ureter 04/23/2017 DX:Calculus o f ureter; COMMENT: 2011. 3 mm ureteral stone w/ Left hydronephrosis Anxiety 04/23/2017 DX:Anxiety Eczema 04/23/2017 DX:Eczema Hearing loss 04/23/2017 DX:Hearing loss; COMMENT: Hearing aids Family History Medical History Relation Name Comments Eczema Daughter Other: Hearing loss Father Heart attack Maternal Grandmother Hypertension Mother Renal Disease, Asthma Relation Name Status Comments Daughter Father Maternal Grandmother Mother Social History Tobacco Use Types Packs/Day Years Used Date Smoking Tobacco: Former Cigarettes Q uit: 08/05/2020 Smokeless Tobacco: Never Alcohol Use Standard Drinks/Week Comments Yes 0 (1 standard drink = 0.6 oz pur e alcohol) Comments Unknown Sex and Gender Information Value Date Recorded Sex Assigned at Not on file Legal Sex Female 5:43 AM EST Gender Identity Not on file Sexual Orientation Not on file Obstetrics History Last Filed Vital Signs Vital Sign Reading Time Taken Comments Blood Pressure 114/67 06/11/2023 3:22 PM EST Pulse 98 06/11/2023 3:22 PM EST Temperature - - Respiratory Rate - - Oxygen Saturation - - Inhaled Oxygen Concentration - - Weight 71.2 kg (157 lb) 06/11/2023 3:22 PM EST Height 160 cm (5' 3 ) 06/11/2023 3:22 PM EST Body Mass Index 27.81 06/11/2023 3:22 PM EST Plan of Treatment Upcoming Encounters Date Type Department Care Team (Late st Contact Info) Description 02/22/2025 12:00 PM EDT Office Visit Adult Medicine [address] [phone] Meliza Samayoa MD [address] [place] [id number] Health Maintenance Due Date Last Done Comments Cervical Cancer Screening: Pap Smear 01/20/2009 HPV Vaccines (3 - 3-dose series) 11/03/2009 07/05/2009, 05/05/2009 Depression Screening 07/08/2022 HIV Screening 07/08/2022 Hepatitis C Screening 07/08/2022 Social Influencers of Health Screening 07/08/2022 COVID-19 Vaccine ( season) 2024 11/13/2021, 05/30/2021, 05/09/2021 Influenza Vaccine (Season Ended) 2025 06/11/2023, 08/31/2015 Cholesterol Screening (Lipid Panel) 06/11/2028 06/11/2023 DTaP,Tdap,and Td Vaccines (8 - Td or Tdap) 03/02/2031 03/02/2021, 12/31/2012, 12/22/1998, Additional history exists HIB Vaccines Completed 09/20/1989 MMR Vaccines Completed 06/04/1996, 09/20/1989 IPV Vaccines Completed 03/27/1998, 10/05, 09/20/1989, Additional history exists Hepatitis B Vaccines Completed 11/14/2001, 07/10/1999, 06/12/1999 Varicella Vaccines Aged Out 12/31/2012, 07/19/1998 No longer eligible based on patient's age to complete this topic Hepatitis A Vaccines Aged Out No long er eligible based on patient's age to complete this topic Meningococcal ACWY Vaccine Aged Out N o longer eligible based on patient's age to complete this topic Meningococcal B Vaccine Aged Out No l onger eligible based on patient's age to complete this topic Pneumococcal Vaccine: Pediatrics (0 to 5 Years) and At-Risk Patients (6 to 64 Years) Aged Out No longer eligible based on patient's age to complete this topic RSV Immunization Patients Under 20 months Aged Out No longer eligible based on patient's age to complete this topic Procedures Procedure Name Priority Date/Time Associated Diagnosis Comments LIPID PANEL Routine 06/11/2023 from Last 3 Months or Most Recently Relevant to Health Maintenance Results * Lipid panel (06/11/2023) LDL/HDL Ratio 3 0 - 4 Triglycerides 86 0 - 150 mg/dL Cholesterol 176 0 - 200 mg/dL HDL 63 >=40 mg/dL LDL Cholesterol 96 0 - 100 mg/dL Blood Venous blood specimen / Unknown Historical Provider LAB BLOOD ORDERABLES [place] l Result from Last 3 Months or Most Recently Relevant to Health Maintenance Insurance [facility] Care Teams Warp Spooler Relationship Specialty Start Date End Date Meliza Samayoa MD PCP - General 09/03/22
[2025-01-08] MEDS: ondansetron HCL 4 MG/2 ML VIAL IVPUSH (09:50)
[2025-01-08] MEDS: 0.9 % Sodium Chloride 1,000 ML 999 ML IV (09:51)
[2025-01-08 09:53] LABS: Alanine Aminotransferase 11 U/L (0-31); Albumin Level 4.3 g/dL (3.5-5.0); Alkaline Phosphatase 61 U/L (39-117); Anion Gap 13 (12-20); Aspartate Amino Transferase 27 U/L (5-31); Bilirubin Total 0.5 mg/dL (0.0-1.0); Blood Urea Nitrogen 11 mg/dL (9-16); Calcium 9.1 mg/dL (8.4-10.2); Carbon Dioxide 24 mmol/L (22-29); Chloride 108 mmol/L (96-108); Creatinine Clr Calc Pharmacy 100.1; Estimated Glomerular Filt Rate > 60; Glucose Random 120 mg/dL (60-115); HCG Quantitative < 2 mIU/mL; Potassium 3.7 mmol/L (3.3-5.1); Sodium 141 mmol/L (135-145)
[2025-01-08] MEDS: Ketorolac Tromethamine 30 MG/ML VIAL IVPUSH (10:34)
[2025-01-08] MEDS: Morphine Sulfate 4 MG/ML CARTRIDGE IVPUSH (10:35)
--- NOTE | 2025-01-08 10:46 | PC.NURSE ---
patient medicated for 9/10 pain per orders. pt continues to have nausea.
[2025-01-08] MEDS: Metoclopramide HCl 10 MG/2 ML VIAL IVPUSH (11:01)
[2025-01-08 12:16] LABS: Appearance Urine Cloudy; Color Urine Yellow; Glucose Urine UA Negative (Negative); Leukocyte Esterase Urine Trace (Negative); Nitrite Urine Negative (Negative); UMIC TRIGGER UACC YES; Urine Blood Moderate (2+) (Negative); Urine Ketones 80 mg/dL (Negative); Urine Protein 30 (1+) mg/dL (Neg-Trace)
[2025-01-08 12:21] LABS: Bacteria Urine 2+ (None Seen); Hyaline Casts Urine 0-2 /LPF (0-2); RBC Urine >20 /HPF (0-2); WBC Urine 0-5 /HPF (0-5)
[2025-01-08] MEDS: Tamsulosin HCL 0.4 MG CAPSULE PO (12:40)
[2025-01-08] MEDS: HYDROmorphone HCl 1 MG/ML SYRINGE IVPUSH (12:40)
[2025-01-08] MEDS: levoFLOXacin/D5W 500 MG/100 ML PIGGYBACK 100 MG IV (14:08)
--- NOTE | 2025-01-08 14:08 | P.CNUR_ITS ---
History of Present Illness Consult details Consult date: 01/08/25 Narrative: CC: Left UPJ stone 34-year-old female. Past medical history of kidney stones. Present through emergency room with left flank pain starting 05:00 in the morning. Pain to 10/10 with minimal change from treatment Accompanied by nausea Denies hematuria, fever, sweats Lab work calcium 0.74, UA 200 WBC Imaging - CT scan 11 mm left impacted UPJ stone Recommend cystoscopy, left retrograde, left stent placement Review of Systems 2 Constitutional: Constitutional: Reports as per HPI and Reports no additional constitutional complaints Cardiovascular: Cardiovascular: Reports as per HPI and Reports no additional cardiovascular complaints Respiratory: Respiratory: Reports as per HPI and Reports no additional respiratory complaints Gastrointestinal: Gastrointestinal: Reports as per HPI and Reports no additional gastrointestinal complaints Genitourinary: Genitourinary: Reports as per HPI Musculoskeletal: Musculoskeletal: Reports no additional musculoskeletal complaints and Reports as per HPI Neurologic: Reports system reviewed and no additional complaints, except as documented and Reports as per HPI PMF Past Medical History Medical History Renal calculi Abnormal glucose affecting Family History Family History Maternal Grandmother HTN (hypertension) Maternal Grandfather No problems noted. Paternal Grandmother No problems noted. Surgical History Surgical History History of surgery Social History Social History Household Members: Children Household Members Other:: lives with 3 daughters Housing: [facility] Are you a primary patient care technician instructor to a significant other at home: No Do you presently have visiting nurse or other home services: No Alcohol intake: current Cigarettes Per Day: 1 Years Smoked: 10 Smoked in Last 30 Days: Yes Second Hand Smoke Exposure: No Use of substances other than those prescribed or required for medical reasons: Yes Substance Use Type: Marijuana Substance Use Frequency: Daily Trauma History: None Advance Directives: No Advance Directives Information Provided: Yes Do you have a plan to hurt others: No Plan service: No Current occupational status: employed 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 Gender identity: Female Meds Allergies Allergy/AdvReac Type Severity Reaction Status Date / Time No Known Allergies Allergy Mild NOT Verified 01/08/25 08:50 APPLICABLE Home Medications ?Medication ?Instructions ?Recorded ?Confirmed ?Last Taken ?Type multivitamin with minerals 0 tab PO 06/06/21 01/08/24 Unknown History (Hair,Skin and Nails tablet) levonorgestrel 21 mcg/24 hr (up to intrauterine 08/02/21 01/08/24 Unknown History 8 years) 52 mg intrauterine device (Mirena) mometasone 0.1 % topical solution ml topical 02/23/22 01/08/24 Unknown History Physical Exam 2 Vital Signs: Vital Signs: Last Vital Signs Temp 97.3 F 01/08/25 08:48 Pulse 87 01/08/25 13:03 Resp 14 01/08/25 13:03 BP 111/78 01/08/25 13:03 Pulse Ox 100 01/08/25 13:03 O2 Del Method Room Air 01/08/25 13:03 BMI result Body Mass Index 28.2 Const: General: cooperative, healthy appearing, comfortable and no acute distress Orientation/consciousness: patient oriented x3 HEENT: Face and sinus: Yes normal facial exam Mouth: moist mucous membranes Neck: Neck: Yes normal visual inspection, Yes full ROM and Yes trachea midline Chest: Chest palpation & inspection: normal inspection of the chest Resp: Effort & Inspection: normal respiratory effort, able to speak in complete sentences and no respiratory distress GI: Inspection: Yes normal to inspection Back/Spine/Pelvis: Cervical Spine: normal cervical lordosis Thoracic/Lumbar Spine: thoracic and lumbar spine normal to inspection Skin: General skin exam: no rashes or lesions noted Neuro: General: patient oriented x3, tone normal and moves all extremities Extrem: General: Yes normal to inspection and Yes capillary refill normal Results Labs 01/08/25 09:23 01/08/25 09:23 Labs: Abnormal lab results 01/08/25 01/08/25 Range/Units 09:23 12:08 WBC 11.3 H (4.8-10.8) X10*3/uL Neut % (Auto) 82.0 H (45-73) % Lymph % (Auto) 11.8 L (20-40) % Absolute Neuts (auto) 9.2 H (2.0-8.3) x10*3/uL Random Glucose 120 H (60-115) mg/dL Urine Protein 30 (1+) H (Neg-Trace) mg/dL Urine Blood Moderate (2+) H (Negative) Ur Leukocyte Esterase Trace H (Negative) Urine RBC >20 H (0-2) /HPF Short CBC 01/08/25 Range/Units 09:23 WBC 11.3 H (4.8-10.8) X10*3/uL Hgb 14.5 (12.0-16.0) g/dl Hct 42.8 (37.0-47.0) % Plt Count 258 (160-400) X10*3/uL BMP 01/08/25 09:23 Sodium 141 Potassium 3.7 Chloride 108 Carbon Dioxide 24 BUN 11 Creatinine 0.74 Calcium 9.1 Liver Function 01/08/25 Range/Units 09:23 Total Bilirubin 0.5 (0.0-1.0) mg/dL AST 27 (5-31) U/L ALT 11 (0-31) U/L Alkaline Phosphatase 61 (39-117) U/L Albumin 4.3 (3.5-5.0) g/dL Urine 01/08/25 Range/Units 12:08 Urine Color Yellow Urine Appearance Cloudy Urine pH 7.0 (5.0-9.0) Ur Specific [place] 1.020 (1.005-1.025) Urine Protein 30 (1+) H (Neg-Trace) mg/dL Urine Glucose (UA) Negative (Negative) mg/dL All other labs normal. Assessment and Plan (1) Renal calculi: Status: Acute Plan Risks, benefits and alternatives to therapy were discussed. These include but are not limited to infection, bleeding, damage to local organs and tissues, need for further interventions. Anesthetic risks regarding cardiac arrhythmia, blood clots, and potential mortality were discussed. The patient understands the typical recovery time and the outpatient nature of the procedure. After consideration of these risks the patient gives full informed consent and they wish to move ahead with the procedure. - cystoscopy, left retrograde, left stent placement Procedures Date of Service Date of Service: 01/08/25
--- NOTE | 2025-01-08 14:20 | PC.NURSE ---
verbal nurse to nurse report given to ruth RN in short stay. pt to be picked up at approx 1500
--- NOTE | 2025-01-08 15:13 | PC.NURSE ---
Left for short stay at 15:12.
--- NOTE | 2025-01-08 15:34 | P.CONAN_ITS ---
HPI - Anesthesia Eval Consult details Narrative: 34 yo F presenting for cystoscopy, left retrograde, left stent placement PMFSH Active Problems Active Problems: All Active Problems (Updated 01/08/24 @ 14:01 by Geovanna Puckett CNM) Encounter for screening examination for sexually transmitted disease (Acute) Renal cyst (Acute) Vaginal discharge (Acute) Well woman exam with routine gynecological exam (Acute) Encounter for routine checking of intrauterine contraceptive device (IUD) (Acute) Renal calculi (Acute) care following delivery (Acute) Small for dates fetus (Acute) Encounter for supervision of normal in third trimester (Acute) Size of fetus inconsistent with dates, antepartum (Acute) Decreased movement affecting management of mother, antepartum (Acute) Abnormal glucose affecting (Acute) Encounter for supervision of normal in third trimester (Acute) History of section complicating (Acute) Encounter for supervision of normal in second trimester (Acute) Cervical cancer screening (Acute) Encounter for screening for malformation using ultrasound (Acute) Anxiety (Acute) (Acute) Spotting affecting in first trimester (Acute) Unplanned (Acute) test positive (Acute) Past Medical History Medical History Renal calculi Abnormal glucose affecting Family History Family History Maternal Grandmother HTN (hypertension) Maternal Grandfather No problems noted. Paternal Grandmother No problems noted. Family history of problems with anesthesia: No Surgical History Surgical History History of surgery History of Problems with Anesthesia: No Social History Social History Household Members: Children Household Members Other:: lives with 3 daughters Both parents involved: Yes Housing: Condominium Are you a primary healthcare economics consultant to a significant other at home: No Do you presently have visiting nurse or other home services: No 75 years or older and lives alone: No Alcohol intake: current Alcohol intake frequency: a few times a month Patient Tobacco Use Status: Former Tobacco user Tobacco use type: Cigarette Cigarettes Per Day: 1 Years Smoked: 15 Second Hand Smoke Exposure: No Substance Use Type: Marijuana Trauma History: None service: No Current occupational status: employed 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 Gender identity: Female Meds Allergies Allergy/AdvReac Type Severity Reaction Status Date / Time No Known Allergies Allergy Mild NOT Verified 01/08/25 15:16 APPLICABLE Home Medications ?Medication ?Instructions ?Recorded ?Confirmed ?Last Taken ?Type multivitamin with minerals 1 tab PO DAILY 06/06/21 01/08/25 01/06/25 History (Hair,Skin and Nails tablet) levonorgestrel 21 mcg/24 hr (up to 1 device intrauterine DIRECTED 08/02/21 01/08/25 Unknown History 8 years) 52 mg intrauterine device (Mirena) Exam Exam Date and Time: 01/08/25 1530 Height,Weight and Vital Signs: Height 5 ft 3 in Weight 72.3 kg Last Vital Signs Temp 97.8 F 01/08/25 15:18 Pulse 62 01/08/25 15:18 Resp 16 01/08/25 15:18 BP 127/74 01/08/25 15:18 Pulse Ox 99 01/08/25 15:18 O2 Del Method Room Air 01/08/25 15:18 Pertinent Lab Results Pertinent Lab Results: Laboratory Tests 01/08/25 01/08/25 09:23 12:08 WBC 11.3 H RBC 4.74 Hgb 14.5 Hct 42.8 MCV 90.3 MCH 30.6 MCHC 33.9 RDW 13.0 Plt Count 258 MPV 9.5 Immature Gran % (Auto) 0.3 Neut % (Auto) 82.0 H Lymph % (Auto) 11.8 L [place] % (Auto) 5.2 Eos % (Auto) 0.4 Baso % (Auto) 0.3 Lymph # (Auto) 1.3 [place] # (Auto) 0.6 Eos # (Auto) 0.1 Baso # (Auto) 0.0 Abs Immat Gran (auto) 0.03 Absolute Neuts (auto) 9.2 H Absolute Nucleated RBC 0.000 Nucleated RBC % (auto) 0.0 Sodium 141 Potassium 3.7 Chloride 108 Carbon Dioxide 24 Anion Gap 13 BUN 11 Creatinine 0.74 Estim Creat Clear Calc 100.1 Estimated GFR > 60 Random Glucose 120 H Calcium 9.1 Total Bilirubin 0.5 AST 27 ALT 11 Alkaline Phosphatase 61 Total Protein 7.0 Albumin 4.3 Beta HCG, Quant < 2 Urine Color Yellow Urine Appearance Cloudy Urine pH 7.0 Ur Specific [place] 1.020 Urine Protein 30 (1+) H Urine Glucose (UA) Negative Urine Ketones 80 Urine Blood Moderate (2+) H Urine Nitrite Negative Ur Leukocyte Esterase Trace H Urine RBC >20 H Urine WBC 0-5 Ur Squamous Epith Cells 11-20 Urine Bacteria 2+ Hyaline Casts 0-2 Airway Mallampati Class: II TM Dist: >3cm Neck ROM: Full Loose/Missing/Broken Teeth: No (patient denies any loose or broken teeth) Heart: S1S2 Lungs: CTAB Assessment and Plan Assessment Anesthesia Assessment: Anesthesia Plan Discussed and Chart Reviewed Final Anesthetic Review Family History of Problems with Anesthesia: No History of Problems with Anesthesia: No NPO: Yes ASA Class: II Final Preanesthetic Review: No Changes in Pt Med Stat, Meds/Allgs Chart Reviewed, Consent Obtained/Reviewed and Anes Risks/Benef Reviewed Patient Risk: Low Procedure Risk: Low Anesthetic Plan Anesthetic Plan: GA and Agree w/ Assess. and Plan Disposition: Standard PACU
--- NOTE | 2025-01-08 16:40 | MHC.SHP ---
Pre-Procedural Eval Section A - 24 Hr Update-Section A only Date of Service: 01/08/25 The patient is an INPATIENT: Yes Changes since office visit: No Cold of Flu in the past 2 weeks, No New Medical Problems, No Changes in Medication and No Patient answered all questions The patient has been examined within 24 hours of the surgical procedure. The History & Physical has been completed within 30 days and I have reviewed it.: Yes Section B - Complete if H&P > 30 days Chief Complaint: L Side Pain Allergies: Allergies Allergy/AdvReac Type Severity Reaction Status Date / Time No Known Allergies Allergy Mild NOT Verified 01/08/25 15:16 APPLICABLE Plan Diagnosis/Plan: Unchanged (cysto, l retro, stent) I have reviewed the history and physical and performed a pertinent physical examination on my patient. No changes have occurred unless specified. Time Spent With Patient Time: Total time managing care of this patient today ____ minutes.
--- NOTE | 2025-01-08 16:40 | W.PM.OPN ---
Operative Note Operative Note Date of Service: 01/08/25 Narrative: PreOperative Diagnosis: left UPJ stone Post Operative Diagnosis: left UPJ stone Procedure: cysto, left retro, left stent placement Surgeon: Dr Trevor Armstrong Anesthesia: LMA Indications for procedure: left UPJ stone Procedure: After informed consent was verified the patient was brought to the operating room and placed in a supine position. Anesthesia was administered per protocol. The patient was placed in modified dorsal lithotomy position and prepped and draped in a sterile fashion. A safety pause time-out was performed. Laterality of procedure and antibiotics were confirmed, appropriate imaging was available A 22 Maltese cystoscope was introduced per urethra. No abnormality was noted of urethra or bladder. Both ureteric orifices were seen in a normal position. The left ureter was cannulated with an open ended catheter and a retrograde examination was performed. filling defect at left UPJ . A Sensor guidewire was placed under fluoroscopy and a good coil was seen within the renal pelvis. A 6Fr x 24 cm double J stent was advanced over the wire and up to the level of the renal pelvis under fluoroscopic and direct visualization. The stent was seen with appropriate coil within the renal pelvis and in the bladder after deployment. The patient tolerated the procedure well and was transferred in a stable condition to the recovery area. Pathology: Drains: as above
[2025-01-08] MEDS: Phenazopyridine HCL 100 MG TABLET PO (16:54)
== END 2025-01-08 17:36 | disposition home or self-care (01) ==
LOC: HO.ED 13:10 → HO.SSS 13:55
PROVIDERS: Physician Assistant; Emergency Provider Emergency Medicine; PCP Internal Medicine; Visit Provider Urology
PROC: (CPT 52332; principal; 2025-01-08 16:00)
DX: N13.2 Hydronephrosis with renal and ureteral calculous obstruction (principal); R10.9 Unspecified abdominal pain; Z87.891 Personal history of nicotine dependence; F12.90 Cannabis use, unspecified, uncomplicated
CPT/HCPCS: 52332; 36415; 74176; 80053; 81001; 84702; 85025; 99285; C1758; C1769; C2617; J0131; J1171; J1885; J2003; J2250; J2270; J2405; J2704; J2765; J3010; Q9967

== ENCOUNTER → 2025-01-08 10:36 | Outpatient (BNV) | payer OTHER, SELFPAY | PROVIDERS: Emergency Provider Emergency Medicine; PCP Internal Medicine; Visit Provider Radiology Diagnostic Radiology | DX: N13.2 Hydronephrosis with renal and ureteral calculous obstruction (principal) | CPT/HCPCS: 74176 ==

== ENCOUNTER → 2025-01-08 13:55 | Outpatient (BNV) | payer OTHER, SELFPAY | PROVIDERS: Emergency Provider Emergency Medicine; PCP Internal Medicine; Visit Provider Urology | DX: N20.0 Calculus of kidney (principal) | CPT/HCPCS: 52332; 74420; 99284 ==

== ENCOUNTER 2025-01-12 11:15 | Outpatient (AMB) | payer OTHER, SELFPAY ==
--- NOTE | 2025-01-12 11:15 | A.OFFVIS_ITS ---
Intake Visit Reasons: ESWL discussion Intake Note: Patient is present for ESWL DISCUSSION Urology Medication:TAMSULOSIN Antibiotic Allergy:NONE Blood Thinner:NONE Post Partum Nurse Required: No Allergies No Known Allergies Allergy (Mild, Verified 01/12/25 11:17) NOT APPLICABLE HPI Comments Details: Merry is a pleasant female. She is a patient of Dr. Laboy. She is seen for the following urologic conditions - nephrolithiasis Telemedicine Evaluation 15 min Consultation DoxSGB Denzel Video Known nephrolithiasis Admit through hospital last week for left proximal ureteric stone Stent placed Plan for ESWL with cysto and stent removal Discussed risks and benefits Will need Litholink following procedure Nephrolithiasis Known stone former Recent imaging confirmed small stones right side plus some other small stones left side Primary stone 11 mm impacted UPJ Has been on vitamin B6 [facility] Medical History (Updated 01/11/25 @ 08:35 by Michaela Bustos DO) care following delivery Encounter for screening for malformation using ultrasound Small for dates fetus Size of fetus inconsistent with dates, antepartum Decreased movement affecting management of mother, antepartum Spotting affecting in first trimester Encounter for supervision of normal in third trimester Encounter for supervision of normal in third trimester Encounter for supervision of normal in second trimester Unplanned test positive Renal calculi Abnormal glucose affecting Surgical History (Updated 01/08/25 @ 16:28 by Debora Carbajal RN) Previous section Family History Maternal Grandmother HTN (hypertension) Maternal Grandfather No problems noted. Paternal Grandmother No problems noted. Social History Household Members: Children Household Members Other:: lives with 3 daughters Both parents involved: Yes Housing: Condominium Are you a primary patient care technician to a significant other at home: No Do you presently have visiting nurse or other home services: No 75 years or older and lives alone: No Alcohol intake: current Alcohol intake frequency: a few times a month Patient Tobacco Use Status: Former Tobacco user Tobacco use type: Cigarette Cigarettes Per Day: 1 Years Smoked: 15 Second Hand Smoke Exposure: No Substance Use Type: Marijuana Trauma History: None service: No Current occupational status: employed 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 Gender identity: Female Female Reproductive History Menstrual Age of Menarche: 8 Review of Systems Const All systems reviewed & are unremarkable except as noted in HPI and below Reports no additional complaints Resp Reports no additional complaints GI Reports no additional complaints Reports as per HPI Musc Reports no additional complaints Physical Exam Telemedicine evaluation Appropriate responses Regular breathing rate and rhythm HEENT Head: Yes normal to inspection Ears: hearing grossly normal bilaterally Eyes General: appearance normal, both eyes and all related structures Neck Neck: Yes normal visual inspection Chest Chest palpation & inspection: normal inspection of the chest Resp Effort & Inspection: normal respiratory effort and able to speak in complete sentences Telehealth Telehealth Location of provider rendering services: practice address Location of patient: address on file Patient Identification confirmed using: Name, : Yes Telehealth method: voice only Patient verbally consented to treatment: Yes Patient verbally consented to billing insurance company: Yes Patient informed of any privacy concerns related to visit: Yes Assessment & Plan Assessment & Plan (1) Renal calculi: Code(s): N20.0 - Calculus of kidney Category: Medical Plan Extracorporeal Shock Wave Lithotripsy We discussed the nature of the decision and reasonable alternatives for performing the above surgery. Interventions include chemical dissolution, ESWL, ureteroscopy with laser lithotripsy and stent placement, PCNL. Options such as medical therapy were discussed. The relative uncertainties and benefits related to each alternate procedure were adequately discussed. General surgical risks including, but not limited to, pain, bleeding, infection, myocardial infarction, pulmonary embolus, deep vein thrombosis and cerebrovascular accident which may result in further hospitalization were discussed. Full disclosure of the procedure as well as all major risks, benefits and complications were discussed including but not limited to risks of bleeding, injury to the kidney with hematoma or jean claude-hematoma, failure to fragments stone, potential for ureteric obstruction from stone passage and need for secondary procedures. There is a small long-term risk of hypertension and a question jimmie of diabetes. Success rate of fragmentation and passage is approximately 70- 75%. This is compared to the risks and benefits for ureteroscopy which has a higher success rate but is a more invasive procedure. The success rate of the procedure was discussed. Success of the procedure in the short-term does not necessarily guarantee that long-term success will be maintained. Suitable follow up will need to be maintained. The patient showed understanding of the discussion as well as the typical recovery time, and the outpatient nature of this procedure. Opportunity was given for questions. Repeat-back protocol used to confirm understanding. They wish to proceed with left ESWL - cysto stent removal Patient Instructions: This note is constructed using voice recognition software. While every effort has been made to ensure accuracy coating and embossing unit operator errors may have been included. Imaging studies, laboratory and physical exam results were discussed and reviewed in detail. No major barriers to patient understanding were identified. An opportunity to ask questions regarding the treatment plan was provided. All questions were answered. The patient expressed understanding and agreement with the above treatment plan. The patient is aware they should contact our office by phone for worsening of their current condition or the appearance of new urologic symptoms. Compliance is encouraged with any medications and followup testing that is ordered. It is a privilege to participate in the urologic care of your patient. If you have any questions or concerns regarding treatment for the above conditions, or other urologic issues, please do not hesitate to contact me. The office telephone contact is [phone]. Sincerely, Dr Trevor Armstrong MD, [facility] - Urology Compassionate Specialist Care for the Genitourinary System Coding Level of Care Code Tele Est Pt Level 4 (07510) Diagnoses Renal calculi N20.0
--- OUTSIDE RECORDS SUMMARY | 2025-01-12 13:31 | XMS_ITS | Clinical Summary ---
Author Organization [facility] Address [address] [place] [address] Care Team Providers Care Dot Net Developer Name Role Phone Meliza Samayoa MD Primary [...] (Infanrix) 6wks to less than 7yo ,07/24/1989,1988,1987 [id number] (Pentacel) 2mo to less than 5yo 09/20/1989 [...] 12:00 PM EDT Office Visit Adult Medicine [address] [phone] Meliza Samayoa MD [address] [place] [id number] Health Maintenance Due Date Last Done Comments [...] Most Recently Relevant to Health Maintenance Insurance [address] [address] PLAN Care Teams Dot Net Developer Relationship Specialty Start Date End Date Meliza Samayoa MD PCP - General 09/03/22
== END 2025-01-12 11:48 | disposition home or self-care (01) ==
LOC: HO.HUSH 11:15
PROVIDERS: PCP Internal Medicine; Visit Provider Urology
DX: N20.0 Calculus of kidney (principal)
CPT/HCPCS: 99214

== ENCOUNTER → 2025-01-20 06:00 | Outpatient (BNV) | payer OTHER, SELFPAY | PROVIDERS: PCP Internal Medicine; Visit Provider Radiology Vascular & Interventional Radiology | DX: N20.0 Calculus of kidney (principal) | CPT/HCPCS: 74018 ==

== ENCOUNTER 2025-01-20 06:26 | Day surgery (SDC) | payer OTHER, SELFPAY ==
--- OUTSIDE RECORDS SUMMARY | 2025-01-13 15:18 | XMS_ITS | Clinical Summary ---
Author Organization [facility] Address [address] [place] [address] Care Team Providers Care Cyber Workforce Developer And Manager Name Role Phone Meliza Samayoa MD Primary [...] (Infanrix) 6wks to less than 7yo ,07/24/1989,1988,1987 [id number] (Pentacel) 2mo to less than 5yo 09/20/1989 [...] 12:00 PM EDT Office Visit Adult Medicine [address] [phone] Meliza Samayoa MD [address] [place] [id number] Health Maintenance Due Date Last Done Comments [...] Most Recently Relevant to Health Maintenance Insurance [place] [address] PLAN Care Teams Cyber Workforce Developer And Manager Relationship Specialty Start Date End Date Meliza Samayoa MD PCP - General 09/03/22
--- NOTE | 2025-01-19 09:20 | HO.ANESPROP2 ---
Documented by User: Samantha Higuera NP 01/19/25 09:22 HPI - Anesthesia Eval Consult details Narrative: 34yo F for Left Lithotripsy ESW,with stent removal s/p cysto etc 01/08/25 with GA-LMA 4 PMFSH Active Problems Active Problems: All Active Problems Calculus, ureteral (Acute) Encounter for screening examination for sexually transmitted disease (Acute) Renal cyst (Acute) Vaginal discharge (Acute) Well woman exam with routine gynecological exam (Acute) Encounter for routine checking of intrauterine contraceptive device (IUD) (Acute) History of section complicating (Acute) Cervical cancer screening (Acute) Anxiety (Acute) Abnormal glucose affecting (Acute) Past Medical History Medical History (Updated 01/16/25 @ 00:02 by Background Patel) care following delivery Encounter for screening for malformation using ultrasound Small for dates fetus Size of fetus inconsistent with dates, antepartum Decreased movement affecting management of mother, antepartum Spotting affecting in first trimester Encounter for supervision of normal in third trimester Encounter for supervision of normal in third trimester Encounter for supervision of normal in second trimester Unplanned test positive Renal calculi Abnormal glucose affecting Family History Family History Maternal Grandmother HTN (hypertension) Maternal Grandfather No problems noted. Paternal Grandmother No problems noted. Family history of problems with anesthesia: No Surgical History Surgical History (Updated 01/16/25 @ 00:02 by Background Patel) Previous section History of Problems with Anesthesia: No Social History Social History Household Members: Children Household Members Other:: lives with 3 daughters [facility] Are you a primary foster care case manager to a significant other at home: No Do you presently have visiting nurse or other home services: No Alcohol intake: current Alcohol intake frequency: holidays/special occasions only Patient Tobacco Use Status: Former Tobacco user Tobacco use type: Cigarette Cigarettes Per Day: 1 Years Smoked: 15 Second Hand Smoke Exposure: No Substance Use Type: Marijuana Have you been hit, kicked, punched, or otherwise hurt by someone within the past year? 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 Gender identity: Female Meds Allergies Allergy/AdvReac Type Severity Reaction Status Date / Time No Known Allergies Allergy Mild NOT Verified 01/12/25 11:17 APPLICABLE Home Medications ?Medication ?Instructions ?Recorded ?Confirmed ?Last Taken ?Type levonorgestrel 21 mcg/24 hr (up to 1 device intrauterine DIRECTED 08/02/21 01/08/25 Unknown History 8 years) 52 mg intrauterine device (Mirena) Assessment and Plan Assessment Anesthesia Assessment: Chart Reviewed Final Anesthetic Review Family History of Problems with Anesthesia: No History of Problems with Anesthesia: No Documented by User: Will Vasquez MD 01/20/25 08:45 PMFSH Past Medical History Medical History (Updated 01/16/25 @ 00:02 by Background Patel) care following delivery Encounter for screening for malformation using ultrasound Small for dates fetus Size of fetus inconsistent with dates, antepartum Decreased movement affecting management of mother, antepartum Spotting affecting in first trimester Encounter for supervision of normal in third trimester Encounter for supervision of normal in third trimester Encounter for supervision of normal in second trimester Unplanned test positive Renal calculi Abnormal glucose affecting Family History Family History Maternal Grandmother HTN (hypertension) Maternal Grandfather No problems noted. Paternal Grandmother No problems noted. Surgical History Surgical History (Updated 01/16/25 @ 00:02 by Background Patel) Previous section Social History Social History Household Members: Children Household Members Other:: lives with 3 daughters [facility] Are you a primary foster care case manager to a significant other at home: No Do you presently have visiting nurse or other home services: No Alcohol intake: current Alcohol intake frequency: holidays/special occasions only Patient Tobacco Use Status: Former Tobacco user Tobacco use type: Cigarette Cigarettes Per Day: 1 Years Smoked: 15 Second Hand Smoke Exposure: No Substance Use Type: Marijuana Have you been hit, kicked, punched, or otherwise hurt by someone within the past year? 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 Gender identity: Female Meds Allergies Allergy/AdvReac Type Severity Reaction Status Date / Time No Known Allergies Allergy Mild NOT Verified 01/12/25 11:17 APPLICABLE Home Medications ?Medication ?Instructions ?Recorded ?Confirmed ?Last Taken ?Type levonorgestrel 21 mcg/24 hr (up to 1 device intrauterine DIRECTED 08/02/21 01/08/25 Unknown History 8 years) 52 mg intrauterine device (Mirena) Exam Airway Mallampati Class: II TM Dist: >3cm Neck ROM: Full Assessment and Plan Assessment Anesthesia Assessment: Anesthesia Plan Discussed Final Anesthetic Review NPO: Yes ASA Class: II Final Preanesthetic Review: No Changes in Pt Med Stat, Meds/Allgs Chart Reviewed, Consent Obtained/Reviewed and Anes Risks/Benef Reviewed Patient Risk: Low Procedure Risk: Low Anesthetic Plan Anesthetic Plan: GA Disposition: Standard PACU
--- NOTE | ~2025-01-20 | XR_ITS ---
CLINICAL HISTORY: left renal stone 1 view abdomen Comparison: None provided Findings: No pneumoperitoneum or pneumatosis. Left-sided double-J ureteral stent appears well-positioned. Rounded calculus projecting over the mid to lower pole of the left kidney, measuring up to 6.5 mm. Multiple phleboliths within the pelvis. IUD noted. No acute fractures. IMPRESSION: Left renal calculus suggested. Well-positioned double-J ureteral stent. This document has been electronically signed by: Hernan Hobson MD on 01/20/2025 07:20:13
[2025-01-20 07:01] LABS: UPreg QC Valid YES
[2025-01-20 07:02] LABS: Urine Pregnancy NEGATIVE (NEGATIVE)
[2025-01-20 07:08] VITALS: BP 122/76; PULSE 80; RESP 20; TEMP 36.6; O2SAT 98; BMI 27.1
[2025-01-20] MEDS: Lactated Ringers 1,000 ML 100 ML IVCONT (07:12)
--- NOTE | 2025-01-20 08:14 | MHC.SHP ---
Pre-Procedural Eval Section A - 24 Hr Update-Section A only Date of Service: 01/20/25 The patient is an INPATIENT: No Changes since office visit: No Cold of Flu in the past 2 weeks, No New Medical Problems, No Changes in Medication and No Patient answered all questions The patient has been examined within 24 hours of the surgical procedure. The History & Physical has been completed within 30 days and I have reviewed it.: Yes Section B - Complete if H&P > 30 days Chief Complaint: Calculus of ureter Details of Present Illness: ESWL left with cystoscopy and stent removal Allergies: Allergies Allergy/AdvReac Type Severity Reaction Status Date / Time No Known Allergies Allergy Mild NOT Verified 01/12/25 11:17 APPLICABLE Review of Systems Sugical H&P ROS: Negative: Constitution, Cardiovascular, Respiratory, Neurological, Psychiatric, Hem-Onc, Allergic/Immunologic, Gastrointestinal, Genitourinary, Musculoskeletal, Integumentary, Endocrine and Eyes/Ears/Nose/Throat Exam Surgical H&P Exam: Normal: HEENT, Normal: Heart, Normal: Lungs, Normal: Extremities, Normal: Abdomen, Normal: Skin and Normal: Neurological Plan I have reviewed the history and physical and performed a pertinent physical examination on my patient. No changes have occurred unless specified. Time Spent With Patient Time: Total time managing care of this patient today ____ minutes.
--- NOTE | 2025-01-20 08:46 | W.PM.OPN ---
Operative Note Operative Note Date of Service: 01/20/25 Narrative: PreOperative Diagnosis: left Renal stones with stent Post Operative Diagnosis: left Renal stones with stent Procedure: left ESWL - with cysto stent removal Surgeon: Dr Trevor Armstrong Anesthesia: mac/sedation Indications for procedure: The patient understands ESWL may be a staged procedure and subsequent intervention may be required based on imaging after ESWL. Quoted stone clearance rates for a solitary procedure are in the 70-80% range based primarily on stone location. They also understand there is a risk of bleeding to the kidney, infection, damage to adjacent organs, and stone migration following the procedure. - Imaging left 8mm proximal ureteric stone Procedure optimization has been performed with IV acetaminophen given in the holding area and 1 L of lactated Ringer's to be given in order to optimize the fluid-stone interface. 20 mg of IV Lasix will be given in the last 5 minutes of the procedure to optimize stone clearance. Procedure: After informed consent was verified the patient was brought to the operating room and placed in a supine position. Anesthesia was performed per protocol. Safety pause time-out was performed. Imaging was displayed in the room and laterality confirmed. Stone in left renal pelvis - stent in place. ESWL was performed. The 1st 500 shocks were performed at 60 hertz. These were performed with increasing power. Once maximum power was reached the rate was increased to 180 hertz. A total of 2500 shocks were given. Targeted imaging with ultrasound/fluoroscopy showed stone smudging suggestive of disintegration. A well lubricated 16 Armenian cystoscope was placed No abnormality noted of urethra during placement Indwelling stent seen within bladder emerging from left ureteric orifices The stent was grasped with a 3 prong grasper and removed without difficulty The patient tolerated the procedure well and was transferred to the recovery area upon completion. Post procedure imaging will be organized. There was no evidence for flank discoloration.
[2025-01-20 09:07] VITALS: BP 118/79; PULSE 98; RESP 20; TEMP 36.1; O2SAT 100
[2025-01-20] MEDS: Ketorolac Tromethamine 15 MG/ML VIAL IVPUSH (09:10)
[2025-01-20 09:12] VITALS: BP 134/81; PULSE 75; RESP 16; O2SAT 99
[2025-01-20 09:17] VITALS: BP 124/79; PULSE 68; RESP 16; O2SAT 100
[2025-01-20 09:22] VITALS: BP 107/76; PULSE 73; RESP 16; O2SAT 100
[2025-01-20 09:37] VITALS: BP 120/69; PULSE 72; RESP 18; TEMP 36.1; O2SAT 98
== END 2025-01-20 10:01 | disposition home or self-care (01) ==
PROVIDERS: Nurse Practitioner; PCP Internal Medicine; Visit Provider Urology
PROC: (CPT 50590; principal; 2025-01-20 08:30)
DX: N20.1 Calculus of ureter (principal); Z46.6 Encounter for fitting and adjustment of urinary device; Z87.442 Personal history of urinary calculi; Z79.899 Other long term (current) drug therapy; Z98.890 Other specified postprocedural states; Z87.891 Personal history of nicotine dependence
CPT/HCPCS: 50590; 74018; 81025; J0131; J1100; J1885; J1956; J2003; J2405; J2704; J3010

== ENCOUNTER → 2025-01-20 06:26 | Outpatient (BNV) | payer OTHER, SELFPAY | PROVIDERS: PCP Internal Medicine; Visit Provider Urology | DX: N20.1 Calculus of ureter (principal); Z96.1 Presence of intraocular lens | CPT/HCPCS: 50590; 52310 ==

== ENCOUNTER 2025-02-10 08:02 | Outpatient (REF) | payer OTHER, SELFPAY ==
--- NOTE | ~2025-02-10 | US_ITS ---
CLINICAL HISTORY: N20.1 - Calculus of ureter US of kidneys Comparison: CR - XR KUB - 01/20/25 06:40 EDT US/SR - US RENAL BI - 08/14/24 10:53 EST Findings: Right kidney is normal in size, echogenicity and morphology, 11.1 cm in length. 5 mm calculus in the upper pole, 7 mm calculus in the midpole, simple intrarenal cyst 1 cm in the midpole, no hydronephrosis, no abnormal vascular flow. Left kidney is normal in size, echogenicity and morphology, 11.6 cm in length. 7 mm calculus in the upper pole, 6 mm calculus in the midpole, 8 mm nonshadowing echogenicity without apparent twinkling artifact in the lower pole, equivocal for calculus. No renal lesion or hydronephrosis. No abnormal vascular flow. Impression: Nonobstructing bilateral nephrolithiasis. This document has been electronically signed by: Rocío Santos MD on 02/11/2025 09:21:03
--- OUTSIDE RECORDS SUMMARY | 2025-02-10 08:04 | XMS_ITS | Clinical Summary ---
Author Organization [facility] Address [address] [place] [address] Care Team Providers Care Pest Control Supervisor Name Role Phone Meliza Samayoa MD Primary [...] (Infanrix) 6wks to less than 7yo ,07/24/1989,1988,1987 [id number] (Pentacel) 2mo to less than 5yo 09/20/1989 [...] 12:00 PM EDT Office Visit Adult Medicine [address] [phone] Meliza Samayoa MD [address] [place] [id number] Health Maintenance Due Date Last Done Comments Cervical Cancer Screening: Pap Smear 01/20/2009 HPV Vaccines (3 - 3-dose series) 11/03/2009 07/05/2009, 05/05/2009 Depression Screening 07/08/2022 HIV Screening 07/08/2022 Hepatitis C Screening 07/08/2022 Social Influencers of Health Screening 07/08/2022 COVID-19 Vaccine ( season) 2024 11/13/2021, 05/30/2021, 05/09/2021 Influenza Vaccine (#1) 2025 06/11/2023, 2015 Cholesterol Screening (Lipid Panel) 06/11/2028 06/11/2023 DTaP,Tdap,and [...] 5 Years) and At-Risk Patients (6 to 49 Years) Aged Out No longer eligible based [...] Most Recently Relevant to Health Maintenance [place] [address] [place] [address] PLAN Care Teams Pest Control Supervisor Relationship Specialty Start Date End Date Meliza Samayoa MD PCP - General 09/03/22
== END 2025-02-10 08:03 | disposition home or self-care (01) ==
LOC: HO.US 08:02
PROVIDERS: PCP Internal Medicine; Visit Provider Nurse Practitioner Family
DX: N20.1 Calculus of ureter (principal)
CPT/HCPCS: 76775

== ENCOUNTER → 2025-02-10 08:04 | Outpatient (BNV) | payer OTHER, SELFPAY | PROVIDERS: PCP Internal Medicine; Visit Provider Radiology Diagnostic Radiology | DX: N20.0 Calculus of kidney (principal) | CPT/HCPCS: 76775 ==

== ENCOUNTER 2025-02-16 10:19 | Outpatient (AMB) | payer OTHER, SELFPAY ==
--- NOTE | 2025-02-16 10:36 | A.OFFVIS_ITS ---
Intake Visit Reasons: 6m/US(set) Intake Note: Patient presents today for follow up on: kidney stone, renal cyst, and ultrasound results Imaging Completed: 02/10/25 Urology Medication: None Antibiotic Allergy:NONE Blood Thinner:NONE [employer] Consultant Required: No Accompanied by: Self / Same As Patient Allergies No Known Allergies Allergy (Mild, Verified 02/16/25 11:09) NOT APPLICABLE Medication List - Last Reconciled 02/16/25 by BUCKY Mares levonorgestrel (Mirena) 1 device intrauterine DIRECTED pyridoxine (vitamin B6) 100 mg PO DAILY 90 days HPI Comments Details: Merry is a pleasant 35-year-old female patient of Dr. Matute. She presents to the office today for follow-up of her nephrolithiasis of note, patient underwent ESWL with cysto stent removal with Dr. Armstrong 01/27. When asked patient reports to be doing well. She denies having had any bothersome urinary issues or concerns. She does discuss knowing she is not drinking enough water daily however is attempting to. Recent renal imaging results were reviewed with the patient today. Renal ultrasound 02/26 right kidney with 5 mm and 7 mm nonobstructing renal calculi. Left kidney with 7 mm, 6 mm, and at mm nonobstructing calculi. No hydronephrosis or renal lesions noted bilaterally. In office urinalysis results reviewed with the patient today. We did discussed importance of further metabolic workup for prevention given patient with increased stone burden. She is agreeable. She denies urinary urgency, urinary frequency, incontinence, nocturia, hematuria, dysuria, foul smelling urine, changes to urinary stream, fever, and or chills. She is happy with her current voiding parameters. Discussed, encouraged, and instructed to drink plenty of water daily as well as adding 1 oz of lemon juice to water daily. All questions were answered. She otherwise offers no other issues or concerns at this time. REPLACED BY [facility] Medical History Renal calculi care following delivery Encounter for screening for malformation using ultrasound Small for dates fetus Size of fetus inconsistent with dates, antepartum Decreased movement affecting management of mother, antepartum Spotting affecting in first trimester Encounter for supervision of normal in third trimester Encounter for supervision of normal in third trimester Encounter for supervision of normal in second trimester Unplanned test positive Abnormal glucose affecting Surgical History Previous section Family History Maternal Grandmother HTN (hypertension) Maternal Grandfather No problems noted. Paternal Grandmother No problems noted. Social History Household Members: Children Household Members Other:: lives with 3 daughters Both parents involved: Yes [facility] Are you a primary director of healthcare systems to a significant other at home: No Do you presently have visiting nurse or other home services: No 75 years or older and lives alone: No Alcohol intake: current Alcohol intake frequency: holidays/special occasions only Patient Tobacco Use Status: Former Tobacco user Tobacco use type: Cigarette Cigarettes Per Day: 1 Years Smoked: 15 Second Hand Smoke Exposure: No Substance Use Type: Marijuana Trauma History: None service: No Current occupational status: employed 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 Gender identity: Female Female Reproductive History Menstrual Age of Menarche: 8 Review of Systems Const All systems reviewed & are unremarkable except as noted in HPI and below Physical Exam Const General: cooperative, healthy appearing, comfortable, no acute distress, well developed, alert and awake Orientation/consciousness: patient oriented x3 Limitations: no limitations HEENT Head: Yes normal to inspection, Yes normocephalic and Yes atraumatic Ears: hearing grossly normal bilaterally Eyes General: appearance normal, both eyes and all related structures Neck Neck: Yes normal visual inspection and Yes trachea midline Chest Chest palpation & inspection: normal inspection of the chest Resp Effort & Inspection: normal respiratory effort and able to speak in complete sentences Cardio Rate: regular rate GI Inspection: Yes normal to inspection General: Yes no CVA tenderness Back/Spine/Pelvis Back: no CVA tenderness Skin General skin exam: no rashes or lesions noted Neuro General: patient oriented x3 Extrem General: Yes normal to inspection Psych Appearance: grossly normal and well kempt Mental Status: mental status grossly normal Speech and movement: Normal speech and movement present and Clear speech present Affect: normal affect Attitude: cooperative Thought process: Normal thought process present Thought content: Normal thought content present Insight: Fair insight present (Psych) Judgement: Fair judgement present (Psych) Results AMB Urinalysis, Automated UA Leukoctes 0 Aydin/uL Last Edit by Yuliya Boyer [facility] on 02/16/25 10:54 UA Nitrite Last Edit by Yuliya Boyer [facility] on 02/16/25 10:54 UA Urobilinogen 0.2 mg/dL Last Edit by Yuliya Boyer [facility] on 02/16/25 10:5 4 UA Protein 15 mg/dL Last Edit by Yuliya Han [facility] on 02/16/25 10:54 UA pH 6.0 Last Edit by Yuliya Boyer [facility] on 02/16/25 10:54 UA Blood 200 Raymond/uL Last Edit by [facility] on 02/16/25 10:54 UA Specific [place] 1.020 Last Edit by Yuliya Boyer [facility] on 02/16/25 10: 54 UA Ketone Last Edit by Yuliya Boyer [facility] on 02/16/25 10:54 UA Bilirubin 0 mg/dL Last Edit by [facility] on 02/16/25 10:54 UA Glucose 0 mg/dL Last Edit by [facility] on 02/16/25 10:54 Results Reviewed Results Reviewed: Laboratory Last Values Urine pH (Auto) 6.0 02/16/25 10:53 Specific [place] (Auto) 1.020 02/16/25 10:53 Urine Protein (Auto) 15 mg/dL 02/16/25 10:53 Glucose (UA)(Auto) 0 mg/dL 02/16/25 10:53 Urine Blood (Auto) 200 Raymond/uL 02/16/25 10:53 Urine Bilirubin (Auto) 0 mg/dL 02/16/25 10:53 Urine Urobilinogen (Auto) 0.2 mg/dL 02/16/25 10:53 Leukocyte Esterase (Auto) 0 Aydin/uL 02/16/25 10:53 Date of Service: 02/10/25 Procedure(s): US renal BI Findings: Right kidney is normal in size, echogenicity and morphology, 11.1 cm in length. 5 mm calculus in the upper pole, 7 mm calculus in the midpole, simple intrarenal cyst 1 cm in the midpole, no hydronephrosis, no abnormal vascular flow. Left kidney is normal in size, echogenicity and morphology, 11.6 cm in length. 7 mm calculus in the upper pole, 6 mm calculus in the midpole, 8 mm nonshadowing echogenicity without apparent twinkling artifact in the lower pole, equivocal for calculus. No renal lesion or hydronephrosis. No abnormal vascular flow. Impression: Nonobstructing bilateral nephrolithiasis. Assessment & Plan Assessment & Plan (1) Renal cyst: Code(s): N28.1 - Cyst of kidney, acquired Category: Medical (2) Renal calculi: Code(s): N20.0 - Calculus of kidney Category: Medical Plan In office urinalysis results reviewed with the patient today; as noted above. She currently denies any bothersome urinary issues or concerns. She reports be happy with current voiding parameters. Recent renal imaging results were reviewed; as noted above. We did discuss stone burden and importance of adequate hydration relation to nephrolithiasis as well as overall health and well-being. Will obtain 24 hour Litholink for further assessment evaluation. BMP, phosphorus, uric acid, vitamin-D, magnesium, and calcium for further assessment evaluation. Continue adding 1 oz of lemon juice to water daily. Start vitamin B6 as discussed and prescribed. Follow-up in 3 months with labs and Litholink to be completed prior; or sooner with any issues, concerns, and or questions. Orders: Orders AMB Urinalysis Automated Today Z13.9 - Encounter for screening, unspecified Basic Metabolic Panel Today N20.1 - Calculus of ureter Phosphorus Today N20.1 - Calculus of ureter Parathyroid Hormone Intact Today N20.1 - Calculus of ureter URORISK Today N20.1 - Calculus of ureter Uric Acid Today N20.1 - Calculus of ureter Vitamin D 25-OH Total Today N20.1 - Calculus of ureter Magnesium Today N20.1 - Calculus of ureter Calcium Today N20.1 - Calculus of ureter Medications: New pyridoxine (vitamin B6) 100 mg PO DAILY 90 tabs 1RF 90 days N20.0 - Calculus of kidney, N20.1 - Calculus of ureter Patient Instructions: The patient had an opportunity to ask questions regarding the treatment plan. All questions were answered. Physical exam, labs, and imaging were discussed and reviewed in detail. As well as risks, benefits, and discussion of treatment choices. No major barriers to understanding were identified. The patient expressed understanding and agreement with the above treatment plan. The patient was made aware they should contact our office by phone for worsening of their current condition, the appearance of new symptoms, or with any questions or concerns. Compliance is encouraged with any medications and follow up testing that is ordered. It is a privilege to be allowed the opportunity to participate in? your urological care.? Again, if you have any questions or concerns If you have any questions or concerns please do not hesitate to contact me. The office is [phone]. This note is constructed using voice recognition software. While every effort has been made to ensure accuracy make up operator errors may have been included. Yours sincerely, BUCKY Mares Coding Level of Care Code Est Pt Level 4 (88248) Diagnoses Renal cyst N28.1 Renal calculi N20.0
--- OUTSIDE RECORDS SUMMARY | 2025-02-16 11:29 | XMS_ITS | Clinical Summary ---
Author Organization [facility] Address [address] [place] [address] Care Team Providers Care Product Support Specialist Name Role Phone Meliza Samayoa MD Primary [...] (Infanrix) 6wks to less than 7yo ,07/24/1989,1988,1987 [id number] (Pentacel) 2mo to less than 5yo 09/20/1989 [...] 12:00 PM EDT Office Visit Adult Medicine [address] [phone] Meliza Samayoa MD [address] [place] [id number] Health Maintenance Due Date Last Done Comments [...] Most Recently Relevant to Health Maintenance Insurance [place] [address] Care Teams Product Support Specialist Relationship Specialty Start Date End Date Meliza Samayoa MD PCP - General 09/03/22
== END 2025-02-16 11:12 | disposition home or self-care (01) ==
LOC: HO.HUSH 10:19
PROVIDERS: PCP Internal Medicine; Visit Provider Nurse Practitioner Family
DX: N28.1 Cyst of kidney, acquired (principal); N20.0 Calculus of kidney; Z13.9 Encounter for screening, unspecified
CPT/HCPCS: 99024

== ENCOUNTER 2025-02-16 10:19 | Outpatient (REF) | payer OTHER, SELFPAY | END 2025-02-16 10:20 | disposition home or self-care (01) | LOC: HO.LAB 10:19 | PROVIDERS: PCP Internal Medicine; Visit Provider Nurse Practitioner Family | DX: N28.1 Cyst of kidney, acquired (principal); N20.2 Calculus of kidney with calculus of ureter; R31.29 Other microscopic hematuria; Z13.89 Encounter for screening for other disorder; Z79.899 Other long term (current) drug therapy | CPT/HCPCS: 81003; 88112; 99212 ==

== ENCOUNTER 2025-08-02 14:20 | Outpatient (REF) | payer OTHER, SELFPAY | END 2025-08-02 14:21 | disposition home or self-care (01) | LOC: HO.LAB 14:20 | PROVIDERS: PCP Internal Medicine; Visit Provider Nurse Practitioner Family | DX: N20.0 Calculus of kidney (principal); N28.1 Cyst of kidney, acquired; N20.1 Calculus of ureter; N39.0 Urinary tract infection, site not specified; N13.8 Other obstructive and reflux uropathy; R82.90 Unspecified abnormal findings in urine; Z79.899 Other long term (current) drug therapy | CPT/HCPCS: 81003; 87086; 99212 ==

== ENCOUNTER 2025-08-02 14:20 | Outpatient (AMB) | payer OTHER, SELFPAY ==
--- NOTE | 2025-08-02 14:20 | MHC.OFFVIS ---
Intake Visit Reasons: 3m/Labs/Litholink/UA Intake Note: Patient presents today for follow up on: kidney stone, renal cyst c/o urine odor since 02/2025 needs refill on VITB-6 Imaging Completed: Renal Ultrasound 02/10/25 Urology Medication: None Antibiotic Allergy:NONE Blood Thinner:NONE Labs dobe 03/26/25 Litho Link Fish Hatchery Inspector Required: No Accompanied by: Self / Same As Patient Allergies No Known Allergies Allergy (Mild, Verified 08/02/25 14:54) NOT APPLICABLE Medication List - Last Reconciled 08/02/25 by BUCKY Mares levonorgestrel (Mirena) 1 device intrauterine DIRECTED pyridoxine (vitamin B6) 100 mg PO DAILY 90 days HPI Comments Details: Merry is a pleasant 35-year-old female patient of Dr. Matute. She presents to the office today for follow-up of her nephrolithiasis. In discussion with the patient today she reports since her last office visit here she has had episodes of foul-smelling urine as well as question of vaginal issues. She reports having followed up and had STD testing which was noted to be within normal limits however she has noted intermittent episodes of foul-smelling urine. She does feel these symptoms have lessened since initial presentation. In office urinalysis results reviewed with the patient today 1+ leukocytes negative nitrates microscopic hematuria. We did review most recent Litholink results. 05/29 we discussed extremely low urine volume of 980ml, borderline hyperoxaluria, marked hypocitraturia and elevated urine pH. We discussed managing urine volume to a proximally 2 L per day. We also discussed lifestyle dietary modifications. Patient with a previous history of ESWL with stent removal with Dr. Armstrong 01/27. She does discuss knowing she is not drinking enough water daily however is attempting to. Previous renal ultrasound 02/26 noted right kidney with 5 mm and 7 mm nonobstructing renal calculi. Left kidney with 7 mm, 6 mm, and at mm nonobstructing calculi. No hydronephrosis or renal lesions noted bilaterally. She denies urinary urgency, urinary frequency, incontinence, nocturia, hematuria, dysuria, changes to urinary stream, fever, and or chills. Discussed, encouraged, and instructed to drink plenty of water daily as well as adding 1 oz of lemon juice to water daily. All questions were answered. She otherwise offers no other issues or concerns at this time. [facility] Medical History Renal calculi care following delivery Encounter for screening for malformation using ultrasound Small for dates fetus Size of fetus inconsistent with dates, antepartum Decreased movement affecting management of mother, antepartum Spotting affecting in first trimester Encounter for supervision of normal in third trimester Encounter for supervision of normal in third trimester Encounter for supervision of normal in second trimester Unplanned test positive Abnormal glucose affecting Surgical History Previous section Family History Maternal Grandmother HTN (hypertension) Maternal Grandfather No problems noted. Paternal Grandmother No problems noted. Social History Household Members: Children Household Members Other:: lives with 3 daughters Both parents involved: Yes [facility] Are you a primary early breastfeeding care specialist to a significant other at home: No Do you presently have visiting nurse or other home services: No 75 years or older and lives alone: No Alcohol intake: current Alcohol intake frequency: holidays/special occasions only Patient Tobacco Use Status: Former Tobacco user Tobacco use type: Cigarette Cigarettes Per Day: 1 Years Smoked: 15 Second Hand Smoke Exposure: No Substance Use Type: Marijuana Trauma History: None service: No Current occupational status: employed 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 Gender identity: Female Female Reproductive History Menstrual Age of Menarche: 8 Review of Systems Const All systems reviewed & are unremarkable except as noted in HPI and below Physical Exam Const General: cooperative, healthy appearing, comfortable, no acute distress, well developed, alert and awake Orientation/consciousness: patient oriented x3 Limitations: no limitations HEENT Head: Yes normal to inspection, Yes normocephalic and Yes atraumatic Ears: hearing grossly normal bilaterally Eyes General: appearance normal, both eyes and all related structures Neck Neck: Yes normal visual inspection and Yes trachea midline Chest Chest palpation & inspection: normal inspection of the chest Resp Effort & Inspection: normal respiratory effort and able to speak in complete sentences Cardio Rate: regular rate GI Inspection: Yes normal to inspection General: Yes no CVA tenderness Back/Spine/Pelvis Back: no CVA tenderness Skin General skin exam: no rashes or lesions noted Neuro General: patient oriented x3 Extrem General: Yes normal to inspection Psych Appearance: grossly normal and well kempt Mental Status: mental status grossly normal Speech and movement: Normal speech and movement present and Clear speech present Affect: normal affect Attitude: cooperative Thought process: Normal thought process present Thought content: Normal thought content present Insight: Fair insight present (Psych) Judgement: Fair judgement present (Psych) Results AMB Urinalysis, Automated UA Leukoctes 70 Aydin/uL Last Edit by Reynaammon Hanna [facility] on 08/02/25 14:28 UA Nitrite Negative Last Edit by Reyna Jacques [facility] on 08/02/25 14:28 UA Urobilinogen 0.2 mg/dL Last Edit by [facility] on 08/02/25 14:28 UA Protein 15 mg/dL Last Edit by [facility] on 08/02/25 14:28 UA pH 6.0 Last Edit by [facility] on 08/02/25 14:28 UA Blood 80 Raymond/uL Last Edit by [facility] on 08/02/25 14:28 UA Specific Eaton 1.025 Last Edit by Reynaammon Hanna [facility] on 08/02/25 14:28 UA Ketone Negative Last Edit by Reyna Jacques [facility] on 08/02/25 14:28 UA Bilirubin 0 mg/dL Last Edit by [facility] on 08/02/25 14:28 UA Glucose 0 mg/dL Last Edit by [facility] on 08/02/25 14:28 Results Reviewed Results Reviewed: Laboratory Last Values Urine pH (Auto) 6.0 08/02/25 14:24 Specific Eaton (Auto) 1.025 08/02/25 14:24 Urine Protein (Auto) 15 mg/dL 08/02/25 14:24 Glucose (UA)(Auto) 0 mg/dL 08/02/25 14:24 Urine Ketones (Auto) Negative 08/02/25 14:24 Urine Blood (Auto) 80 Raymond/uL 08/02/25 14:24 Urine Nitrite (Auto) Negative 08/02/25 14:24 Urine Bilirubin (Auto) 0 mg/dL 08/02/25 14:24 Urine Urobilinogen (Auto) 0.2 mg/dL 08/02/25 14:24 Leukocyte Esterase (Auto) 70 Aydin/uL 08/02/25 14:24 Assessment & Plan Assessment & Plan (1) Renal cyst: Code(s): N28.1 - Cyst of kidney, acquired Category: Medical (2) Renal calculi: Code(s): N20.0 - Calculus of kidney Category: Medical (3) Foul smelling urine: Code(s): R82.90 - Unspecified abnormal findings in urine Category: Medical Plan In office urinalysis results reviewed with the patient today; as noted above; will send for urine culture. Was recent Litholink results reviewed with the patient today We discussed importance of obtaining labs as ordered during last office visit. We discussed importance of adequate hydration as well as lifestyle modifications. All questions were answered. Will obtain renal ultrasound and KUB in 3 months. Will obtain Litholink in 3 months. BMP, phosphorus, uric acid, vitamin-D, magnesium, and calcium for further assessment evaluation. Continue adding 1 oz of lemon juice to water daily. Continue vitamin B6 as discussed and prescribed. Follow-up in 3 months with labs, Litholink, and imaging to be completed prior; or sooner with any issues, concerns, and or questions. Orders: Orders AMB Urinalysis Automated Today N13.8 - Other obstructive and reflux uropathy, N40.1 - Benign prostatic hyperplasia with lower urinary tract symptoms Urine Culture Today N39.0 - Urinary tract infection, site not specified XR KUB Today N20.0 - Calculus of kidney, N28.1 - Cyst of kidney, acquired URORISK Today N20.0 - Calculus of kidney, N28.1 - Cyst of kidney, acquired US renal BI Today N20.0 - Calculus of kidney, N28.1 - Cyst of kidney, acquired Medications: Refilled pyridoxine (vitamin B6) 100 mg PO DAILY 90 tabs 1RF 90 days N20.0 - Calculus of kidney, N20.1 - Calculus of ureter Patient Instructions: The patient had an opportunity to ask questions regarding the treatment plan. All questions were answered. Physical exam, labs, and imaging were discussed and reviewed in detail. As well as risks, benefits, and discussion of treatment choices. No major barriers to understanding were identified. The patient expressed understanding and agreement with the above treatment plan. The patient was made aware they should contact our office by phone for worsening of their current condition, the appearance of new symptoms, or with any questions or concerns. Compliance is encouraged with any medications and follow up testing that is ordered. It is a privilege to be allowed the opportunity to participate in? your urological care.? Again, if you have any questions or concerns If you have any questions or concerns please do not hesitate to contact me. The office is [phone]. This note is constructed using voice recognition software. While every effort has been made to ensure accuracy education nurse errors may have been included. Yours sincerely, BUCKY Mares Coding Level of Care Code Est Pt Level 3 (90570) Add On Problem Visit Only Diagnoses Renal cyst N28.1 Renal calculi N20.0 Foul smelling urine R82.90
--- OUTSIDE RECORDS SUMMARY | 2025-08-02 16:42 | XMS_ITS | Clinical Summary ---
Author Organization [facility] Prior to 06/05/2024 Address [address] [place] [address] Care Team Providers Care Clay Preparation Supervisor Name Role Phone Meliza Samayoa MD Primary Care Provider + Allergies No known active allergies Medications Medication Sig Dispensed Refills Start Date End Date Status Levonorgestrel (MIRENA IU) by Intrauterine route. 0 Active Pyridoxine HCl (vitamin B-6) 100 MG tablet Take 1 Tablet by mouth daily. 0 12/04/2022 Active minoxidil (LONITEN) 2.5 MG tablet Take 1 Tablet by mouth daily. 0 11/29/2022 Active [facility] Targeted Acne Spot 2.5 % Cream APPLY 1 APPLICATOR TOPICALLY DAILY. 21 g 5 04/02/2023 Active ondansetron (ZOFRAN-ODT) 4 MG disintegrating tablet Take 1 Tablet by mouth every 8 hours as needed for Nausea. 21 Tablet 2 09/11/2023 Active aspirin-acetaminophe n-caffeine (Excedrin Extra Strength) 250-250-65 MG per tablet Take 2 Tablets by mouth daily as needed (Headache). 60 Tablet 2 09/11/2023 Active Active Problems Problem Noted Date Migraine without status migrainosus, not intractable 06/11/2023 Hearing loss 04/23/2017 Overview: Hearing aids Depression 04/23/2017 Eczema 04/23/2017 Anxiety 04/23/2017 Calculus of ureter 04/23/2017 Overview: 2011. 3 mm ureteral stone w/ Left hydronephrosis Ovarian cyst 04/23/2017 Overview: Right. 2.6 hemorrhagic cyst 2014 Immunizations Name Administration Dates Next Due COVID-19 (Pfizer) 11/13/2021,05/30/2021,05/09/20 21 DTaP 02/28/1993, 9,1988, 988 HIB 09/20/1989 HPV (Gardasil) 07/05/2009,05/05/2009 Hepatitis B-3 Dose (<19yrs) 11/14/2001, 9,06/12/1999 Influenza (> 6 Months) 08/31/2015 Influenza Vaccine-preservati ve Free-quadrivalent 4 Years 06/11/2023 MMR (Pdplyuq-Mcbmb-Kynmpwz) 06/04/1996, 0 PPD-RBMG 03/18/2019 Polio (IPV) 03/27/1998, 0,07/24/1989, 989,1988 TD (STATE SUPPLIED FOR ADULT S AND CHILDREN) 12/22/1998 Tdap 03/02/2021,12/31/2012 Varicella 12/31/2012,07/19/1998 Family History Medical History Relation Name Comments Eczema Daughter Hearing loss Father DC Maternal Grandmother Hypertension Mother Renal Disease, Asthma Relation Name Status Comments Daughter Father Maternal Grandmother Mother Social History Tobacco Use Types Packs/Day Years Used Date Smoking Tobacco: Former Cigarettes Q uit: 08/05/2020 Smokeless Tobacco: Never Tobacco Cessation:Counseling Given: Not Answered Comments:3 cig/day since 14 y/o Alcohol Use Standard Drinks/Week Comments Yes 0 (1 standard drink = 0.6 oz pur e alcohol) rare Sex Assigned at Date Recorded Not on file Job Start Date Occupation Industry Not on file Not on file Not on file Last Filed Vital Signs Vital Sign Reading Time Taken Comments Blood Pressure 114/67 06/11/2023 3:22 PM EST Pulse 98 06/11/2023 3:22 PM EST Temperature 36.2 C (97.1 F) 06/11/2023 3:22 PM EST Respiratory Rate 14 06/11/2023 3:22 PM EST Oxygen Saturation 98% 07/05/2021 10:06 AM EST Inhaled Oxygen Concentration - - Weight 71.2 kg (157 lb) 06/11/2023 3:22 PM EST Height 160 cm (5' 3 ) 06/11/2023 3:22 PM EST Body Mass Index 27.81 06/11/2023 3:22 PM EST Plan of Treatment Health Maintenance Due Date Last Done Comments CERVICAL CANCER SCREENING 11/12/2016 11/12/2013 BMI CHECK/ADVISE 08/05/2024 06/11/2023 (Com pleted), 12/13/2021, 07/05/2021, Additional history exists DEPRESSION SCREENING/FOLLOWUP 08/05/2024 (Completed), 12/13/2021, 07/05/2021, Additional history exists SOCIAL NEEDS SCREENING 08/05/2024 (Completed), 12/13/2021 (Completed) Covid-19 Vaccine (2022-09 4 season) 2025 11/13/2021, 05/30/2021, 05/09/2021 INFLUENZA (#1) 2025 06/11/2023, 08/31/2015 BASELINE HEALTH EXAM 18-39 06/11/202806/11, 06/11/2023, 12/13/2021, Additional history exists CHOLESTEROL SCREENING 06/11/2028 06/11/2023 , 01/07/2019, 03/28/2017, Additional history exists DTAP/TDAP/TD (7 - Td or Tdap) 03/02/2031, 12/31/2012, 12/22/1998, Additional history exists PNEUMOCOCCAL VACCINE FOR HIG H RISK PATIENTS (#1) 01/20/2053 Care Teams Clay Preparation Supervisor Relationship Specialty Start Date End Date Meliza Samayoa MD [address] [place] [address] [id number] PCP - General Internal Medicine 09/03/22
--- OUTSIDE RECORDS SUMMARY | 2025-08-02 16:42 | XMS_ITS | Encounter Summary ---
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 [address] [place] [id number] [place] [address] Social History Tobacco Use Types Packs/Day Years Used Date Smoking Tobacco: Former Cigarettes Q uit: 08/05/2020 Smokeless Tobacco: Never Comments:3 cig/day since 14 y/o Alcohol Use Standard Drinks/Week Comments Yes 0 (1 standard drink = 0.6 oz pur e alcohol) rare Sex Assigned at Date Recorded Not on file Job Start Date Occupation Industry Not on file Not on file Not on file documented as of this encounter Plan of Treatment Not on file documented as of this encounter Visit Diagnoses Not on filedocumented in this encounter Care Teams Cafe Aide Relationship Specialty Start Date End Date Tuyet Matute MD [address] [place] [id number] PCP - General Internal Medicine 06/16/21 09/02/22 Meliza Samayoa MD [address] [place] [phone] PCP - General Internal Medicine 09/03/22 documented as of this encounter
--- OUTSIDE RECORDS SUMMARY | 2025-08-02 16:42 | XMS_ITS ---
Author Name [facility] Organization Unknown Care Team Organization Name Specialty Phone Email Start Date End Da te [facility] Tuyet Matute Primary Care 06/12/2022 4
--- OUTSIDE RECORDS SUMMARY | 2025-08-02 16:42 | XMS_ITS | Encounter Summary ---
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 [address] [place] [id number] Abstract, Provider Social History Tobacco Use Types Packs/Day Years Used Date Smoking Tobacco: Every Day Smokeless Tobacco: Never Comments:3 cig/day since 14 y/o, trying to smoke less but not fully ready to quit Alcohol Use Standard Drinks/Week Comments Yes 0 (1 standard drink = 0.6 oz pur e alcohol) rare Sex Assigned at Date Recorded Not on file Job Start Date Occupation Industry Not on file Not on file Not on file COVID-19 Exposure Response Date Recorded In the last month, have you been in contact with someone who was confirmed or suspected to have Coronavirus / COVID-19? No / Unsure 10/05/2020 9:26 AM EST documented as of this encounter Plan of Treatment Not on file documented as of this encounter Visit Diagnoses Not on filedocumented in this encounter Care Teams Product Mgr Relationship Specialty Start Date End Date Re Gallardo MD PCP - General Internal Medicine 03/11/19 06/15/21 Tuyet Matute MD [address] [place] [id number] PCP - General Internal Medicine 06/16/21 09/02/22 Meliza Samayoa MD [address] [place] [id number] PCP - General Internal Medicine 09/03/22 documented as of this encounter
--- OUTSIDE RECORDS SUMMARY | 2025-08-02 16:42 | XMS_ITS | Encounter Summary ---
Author Organization [facility] Prior to 06/05/2024 Address [address] [place] [address] Care Team Providers Care Junior Account Manager Name Role Phone Tuyet Matute MD Primary Care Provider [phone] Meliza Samayoa MD Primary Care Provider + Encounter Details Date Type Department Care Team Description 12/18/2021 [facility] Medical Records [address] [place] [id number] Abstract, Provider Social History Tobacco Use Types [...] Exposure Response Date Recorded In the last 10 days, have yo u been in contact with someone who was confirmed or suspected to have Coronavirus/COVID-19? No / Unsure 12/13/2021 9:04 AM EDT documented as of this encounter Plan of Treatment Not on file documented as of this encounter Visit Diagnoses Not on filedocumented in this encounter Care Teams Junior Account Manager Relationship Specialty Start Date End Date Tuyet Matute MD [address] [place] [id number] PCP - General Internal Medicine 06/16/21 09/02/22 Meliza Samayoa MD [address] [place] [id number] PCP - General Internal Medicine 09/03/22 documented as of this encounter
--- OUTSIDE RECORDS SUMMARY | 2025-08-02 16:43 | XMS_ITS | Encounter Summary ---
Author Organization [facility] Prior to 06/05/2024 Address [address] [place] [address] Care Team Providers Care Behavior Management Specialist Name Role Phone Re Gallardo MD Primary Care Provider Unavail Tuyet Auguste MD Primary Care Provider [phone] Meliza Samayoa MD Primary Care Provider + Reason for Visit * Reason Comments E-prescribe Rx Request Encounter Details Date Type Department Care Team Description 02/26/2021 Refill Adult Medicine [address] [address] Re Gallardo MD E-prescribe Rx Request Social History Tobacco Use Types Packs/Day Years [...] on file documented as of this encounter Miscellaneous Notes * Telephone Encounter - Erma Arellano M.A. - 03/02/2021 1:45 PM EDT Last office visit 01/09/21 Next office visit 07/05/21 both with Patsy Noe * Telephone Encounter - Brittany Mccann - 03/02/2021 1:09 PM EDT Patient would like script to be: E-PRESCRIBED/FAXED TO PHARMACY WHEN WAS THE PATIENT'S LAST APPOINTMENT IN ADULT MEDICINE? 01/09/21 WHEN WAS THE LAST TIME THE PATIENT SAW THEIR PCP? 12/19/20 Does patient have an upcoming appointment? Yes 07/05/21 (THE MEDICATION REQUESTED IS ON THE MED LIST ABOVE) All of the medications requested were on the CURRENT MEDS list Did you check the Pharmacy information above?: YES Patient wants: 90 -day supply Is this a mail order prescription request ? NO If the refill is from a FAXED refill request what is the RX # listed on the fax? N/A Patients current insurance carrier is: Payor: [employer] / Plan: [place] [employer] / Product Type: MEDICAID RISK documented in this encounter Plan of Treatment Not on file documented as of this encounter Visit Diagnoses Not on filedocumented in this encounter Care Teams Behavior Management Specialist Relationship Specialty Start Date End Date Re Gallardo MD PCP - General Internal Medicine 03/11/19 06/15/21 Tuyet Matute MD [address] [place] [phone] PCP - General Internal Medicine 06/16/21 09/02/22 Meliza Samayoa MD [address] [place] [phone] PCP - General Internal Medicine 09/03/22 documented as of this encounter
--- OUTSIDE RECORDS SUMMARY | 2025-08-02 16:43 | XMS_ITS | Encounter Summary ---
Author Organization [facility] Prior to 06/05/[address] [place] [address] Care Team Providers Care Manager Rehab Name Role Phone Re Gallardo MD Primary Care Provider Unavail able Tuyet Matute MD Primary Care Provider [phone] Meliza Samayoa MD Primary Care Provider + Encounter Details Date Type Department Care Team Description 03/31/2021 [place]ull[place] Chief Report Medical Records [address] [place] [phone] [place]ovanna Michaud Social History Tobacco Use Types Packs/Day Years [...] on filedocumented in this encounter Care Teams Manager Rehab Relationship Specialty Start Date End Date Re Gallardo MD PCP - General Internal Medicine 03/11/19 06/15/21 Tuyet Matute MD [address] [place] [phone] PCP - General Internal Medicine 06/16/21 09/02/22 Meliza Samayoa MD [address] [place] [address] [phone] PCP - General Internal Medicine 09/03/22 documented as of this encounter
--- OUTSIDE RECORDS SUMMARY | 2025-08-02 16:43 | XMS_ITS | Clinical Summary ---
Author Organization [address] Address [address] [place] [phone] Phone Care Team Providers Care Complex Case Manager Name Role Phone Meliza Samayoa MD Primary Care Pr ovider Allergies No known active allergies Medications aspirin-acetami nophen-caffeine (EXCEDRIN MIGRAINE) 250-250-65 mg per tablet Take 2 Tablets by mouth daily as needed (Headache). 4 Active levonorgestreL (MIRENA) 21 mcg/24hr (up to 8 yrs) 52 mg IUD by Intrauterine route. Active busPIRone (BUSPAR) 5 mg tablet Take 1 tablet (5 mg total) by mouth 2 (two) times a day. 180 each 5 Active Active Problems Problem Noted Date Diagnosed Date Overweight (BMI 25.0-29.9) 02/22/2025 Assessment & Plan (02/22/2025 12:41 PM EDT): Lifestyle counseling provided Migraine without status migrainosus, not intract able 06/11/2023 Assessment & Plan (02/22/2025 12:41 PM EDT): Stable. Continue excedrin PRN Anxiety and depression 04/23/2017 Assessment & Plan (02/22/2025 12:41 PM EDT): Will to try buspar 5mg BID for anxiety She has mild depression for which she will try therapy. Behavioral health resources were provided. she was also provided with the contact information for Gina Martin NP Calculus of ureter 04/23/2017 Overview (08/07/2024): 2011. 3 mm ureteral stone w/ Left hydronephrosis Eczema 04/23/2017 Hearing loss 04/23/2017 Overview (08/07/2024): Hearing aids Assessment & Plan (02/22/2025 12:41 PM EDT): See HPI, has hearing aids which she does not routinely use Ovarian cyst 04/23/2017 Overview (08/07/2024): Right. 2.6 hemorrhagic cyst 2014 Resolved Problems Problem Noted Date Diagnosed Date Resolved Date Depression 04/23/2017 02/22/2025 Immunizations Immunization Administration Dates Next Due DTaP (Infanrix) 6wks to less than 7yo ,07/24/1989,1988,1987 [id number]-[id number] (Pentacel) 2mo to less than 5yo 09/20/1989 HPV, Quadrivalent 07/05/2009,05/05/2009 Hepatitis B Pediatric (Enger ix B; Recombivax HB) to less than 20 yo 11/14/2001,07/10/1999,06/12/1999 Hib (HbOC) 09/20/1989 IPV Inactivated polio (Ipol) 6wks and older 03/27/1998,11/01/1989,07/24/1989,1988,1988 Influenza Quadravalent, MDCK , 0.5ml, preservative free (Flucelvax) 6mo and older 06/11/2023 Influenza Quadrivalent, with preservative (Fluzone; Afluria) 6mo and older 08/31/2015 Influenza Split 04/08/2013 Influenza trivalent, with preservative (Fluzone; Afluria) 6mo and older 08/31/2015,04/15/2014 MMR, measles mumps and rubel la Live (Priorix; M-M-R II) 12mo and older 06/04/1996,09/20/1989 PPD Test 03/18/2019 Pfizer (ages 12 & older) ANNALEE S-CoV-2 COVID-19, mRNA, LNP-S, shay-sucrose, preservative free 11/13/2021 Td Tetanus diptheria (Tdvax) 7yo and older 12/22/1998 Tdap Tetanus diptheria acell ular pertussis (Boostrix; Adacel) 7yo and older 03/02/2021,12/31/2012 Varicella live (Varivax) 12m o and older 12/31/2012,07/19/1998 Surgical History Surgery Date Site/Laterality Comments SECTION PROCEDURE: HISTORICAL ; COMMENT: x2 SECTION, LOW TRANSVERSE 04/07/2021 Medical History Medical History Date Comments Depression 04/23/2017 DX:Depression Ovarian cyst 04/23/2017 DX:Ovarian cyst; COMMENT: Right. 2.6 hemorrhagic cyst 2014 Calculus of ureter 04/23/2017 DX:Calculus o f ureter; COMMENT: 2011. 3 mm ureteral stone w/ Left hydronephrosis Anxiety 04/23/2017 DX:Anxiety Eczema 04/23/2017 DX:Eczema Hearing loss 04/23/2017 DX:Hearing loss; COMMENT: Hearing aids Family History Medical History Relation Name Comments Breast cancer Cousin mother's niece ; patient's cousin; dx 41 or 42 - unsure if genetic testing was done Eczema Daughter Other: Hearing loss Father Heart attack Maternal Grandmother Anemia Mother Jaqueline gomez Heart failure Mother Jaqueline gomez Hypertension Mother Jaqueline gomez Renal Diseas e, Asthma Kidney disease Mother Jaqueline gomez stage 5 on dialysis Colon cancer Neg Hx Ovarian cancer Neg Hx Relation Name Status Comments Cousin Alive Daughter Father Alive Maternal Grandfather Maternal Grandmother Mother Jaqueline gomez Alive Paternal Grandfather Paternal Grandmother Social History Tobacco Use Types Packs/Day Years Used Date Smoking Tobacco: Former Cigarettes 0 Q uit: 08/05/2020 Smokeless Tobacco: Never Tobacco Cessation:Counseling Given: Not Answered Comments:Quit tobacco use 4 years ago; previously smoked 5 -6 cigs a day for 10 years Alcohol Use Standard Drinks/Week Comments Yes 3 (1 standard drink = 0.6 oz pur e alcohol) Housing Instability Answer Date Recorde d Are you worried that in the next 2 months you may not have stable housing? No 02/16/2025 Food Access & Nutrition Answer Date Rec orded Do you have access to a vari ety of food including fruits and vegetables? Yes 02/16/2025 Access to Healthcare Answer Date Record ed Within the last 3 months, ho w many times did you visit the emergency department for your medical care? 1 02/16/2025 Health Literacy Answer Date Recorded How often do you need to hav e someone help you when you read instructions, pamphlets, or other written material from your doctor or pharmacy? Never 02/16/2025 Caregiver: How often do you need to have someone help you when you read instructions, pamphlets, or other written material from your doctor or pharmacy? Not on file 02/16/2025 Financial Risk Answer Date Recorded How hard is it for you to pa y for the very basics like food, housing, medical care, and air conditioning / heating? Not very hard 02/16/2025 Transportation Answer Date Recorded Has the lack of transportati on kept you from meetings, work, or from getting things needed for daily living? No Has the lack of transportati on kept you from medical appointments or from getting medications? No 02/16/2025 Social Isolation Answer Date Recorded How often do you feel lonely or isolated from th ose around you? Never 02/16/2025 Food Risk Answer Date Recorded Within the past 12 months we worried whether our food would run out before we got money to buy more. Never true 02/16/2025 Within the past 12 months th e food we bought just didn't last and we didn't have money to get more. Never true 02/16/2025 Dependent Care Answer Date Recorded Do you need help finding or paying for care for your loved ones. For example, child care provider or elderly care for an older adult? No 02/16/2025 Education Answer Date Recorded Do you think completing more education or training, like finishing a GED, going to college, or learning a trade, would be helpful for you? Yes 02/16/2025 Employment and Income Answer Date Recor ded During the last four weeks, have you been actively looking for work? No 02/16/2025 Living Situation Answer Date Recorded What is your living situation? Unrecognized valu e 02/16/2025 Comments Unknown Sex and Gender Information Value Date Recorded Sex Assigned at Not on file Legal Sex Female 5:43 AM EST Gender Identity Not on file Sexual Orientation Not on file Last Filed Vital Signs Vital Sign Reading Time Taken Comments Blood Pressure 108/76 02/22/2025 11:53 AM EDT Pulse 98 06/11/2023 3:22 PM EST Temperature 36.3 C (97.4 F) 02/22/2025 11:53 AM EDT Respiratory Rate 16 02/22/2025 11:53 AM EDT Oxygen Saturation - - Inhaled Oxygen Concentration - - Weight 69.2 kg (152 lb 9.6 oz) 02/22/2025 11:53 AM EDT Height 160 cm (5' 3 ) 02/22/2025 11:53 AM EDT Body Mass Index 27.03 02/22/2025 11:53 AM EDT Plan of Treatment Health Maintenance Due Date Last Done Comments Cervical Cancer Screening: Pap Smear 01/20/2009 HIV Screening 07/08/2022 Hepatitis C Screening 07/08/2022 COVID-19 Vaccine ( season) 2025 11/13/2021, 11/13/2021, 05/30/2021, Additional history exists Influenza Vaccine (#1) 2025 , 08/31/2015, 08/31/2015, Additional history exists Social Influencers of Health Screening 02/16/2026 02/16/2025 Cholesterol Screening (Lipid Panel) 06/11/2028 06/11/2023 DTaP,Tdap,and Td Vaccines (8 - Td or Tdap) 03/02/2031 03/02/2021, 12/31/2012, 12/22/1998, Additional history exists RSV Immunization Adult Patients (1 - 1-dose 75+ series) 01/20/2063 HIB Vaccines Completed 09/20/1989, 09/20/1989 MMR Vaccines Completed 06/04/1996, 09/20/1989 IPV Vaccines Completed 03/27/1998, 10/05, 09/20/1989, Additional history exists Hepatitis B Vaccines Completed 11/14/2001, 07/10/1999, 06/12/1999 HPV Vaccines Discontinued 07/05/2009, 05/05/2009 Varicella Vaccines Aged Out 12/31/2012, 07/19/1998 No longer eligible based on patient's age to complete this topic Depression Screening Completed 02/16/2025 Hepatitis A Vaccines Aged Out No long [...] mg/dL Blood Venous blood specimen / Unknown [facility] Provider LAB BLOOD ORDERABLES Virginia anabelle Result from Last 3 Months or Most Recently Relevant to Health Maintenance [place] [address] [place] [address] [employer] Care Teams Complex Case Manager Relationship Specialty Start Date End Date Meliza Samayoa MD [address] [place] [address] [phone] (work) [facility] - General 09/03/22
--- OUTSIDE RECORDS SUMMARY | 2025-08-02 16:43 | XMS_ITS | Encounter Summary ---
Author Organization [facility] Prior to 06/05/2024 Address [address] [place] [address] Care Team Providers Care Leather Goods Sales Representative Name Role Phone Joan Raymond MD Primary Care Provider Un available Re Gallardo MD Primary Care Provider Unavail able Tuyet Matute MD Primary Care Provider Meliza Samayoa MD Primary Care Provider + Encounter Details Date Type Department Care Team Description 03/25/2017 Food Broker Report Medical Records [address] [place] [id number] Abstract, Provider Social History Tobacco Use Types Packs/Day Years Used Date Smoking Tobacco: Every Day Alcohol Use Standard Drinks/Week Comments Yes 0 [...] on filedocumented in this encounter Care Teams Leather Goods Sales Representative Relationship Specialty Start Date End Date Joan Raymond MD PCP - General Internal Medicine 03/12/17 9 Re Gallardo MD PCP - General Internal Medicine 03/11/19 06/15/21 Tuyet Matute MD [address] [place] [id number] PCP - General Internal Medicine 06/16/21 09/02/22 Meliza Samayoa MD [address] [place] [id number] PCP - General Internal Medicine 09/03/22 documented as of this encounter
== END 2025-08-02 15:01 | disposition home or self-care (01) ==
LOC: HO.HUSH 14:20
PROVIDERS: PCP Internal Medicine; Visit Provider Nurse Practitioner Family
DX: N28.1 Cyst of kidney, acquired (principal); N20.0 Calculus of kidney; R82.90 Unspecified abnormal findings in urine; N40.1 Benign prostatic hyperplasia with lower urinary tract symptoms; N13.8 Other obstructive and reflux uropathy
CPT/HCPCS: 99213